=== PATIENT | female | born 1965 | race Caucasian/White ===

== ENCOUNTER → 2017-11-04 14:39 | Outpatient (CLI) | payer BC, SELFPAY ==
--- NOTE | 2017-11-04 | DI.US.S_ITS ---
PROCEDURE: US PELVIC COMPLETE INDICATIONS: UTERINE BLEEDING TECHNIQUE: Real-time scanning was performed of the pelvic organs, with image documentation. Additional endovaginal scanning was necessary due to incomplete visualization of the adnexal and endometrial structures by transabdominal scanning. COMPARISON: None. FINDINGS: Transabdominal scanning: Limited scanning through the kidneys shows no hydronephrosis. No pathologic free abdominal or pelvic fluid. Endovaginal scanning: Uterus: Uterus is normal in size at 5.5 x 2.4 0.0 cm. The endometrium measures 6.2 mm in combined thickness. Ovaries: Simple cyst involves the left ovary measuring roughly 25 x 21 x 27 mm the right ovary is not visualized. IMPRESSION: Simple cyst involving the left ovary measuring up to 2.7 cm. Dictated by: Cesar Alexis [facility] Interpreted: Madhavi Dhillon MD on 11/04/2017 at 15:32 Approved by: Madhavi Dhillon MD, PhD on 11/04/2017 at 15:35
== END ==
PROVIDERS: Family Provider Family Medicine; PCP Family Medicine; Visit Provider Nurse Practitioner Family
DX: N83.202 Unspecified ovarian cyst, left side (principal)
CPT/HCPCS: 76856

== ENCOUNTER → 2017-12-03 14:59 | Outpatient (CLI) | payer BC, SELFPAY ==
--- NOTE | 2017-12-03 | DI.MG.S_ITS ---
BILATERAL DIGITAL SCREENING MAMMOGRAM 3D/2D WITH CAD: 12/03/2017 CLINICAL: Routine screening. Comparison is made to exams dated: 10/05/2014 mammogram, 11/24/2006 mammogram, and 11/16/2006 mammogram - [facility]. The tissue of both breasts is heterogeneously dense. This may lower the sensitivity of mammography. Current study was also evaluated with a Computer Aided Detection (CAD) system. There is a mass in the right breast posterior depth lateral region seen on the craniocaudal view only. No other significant masses, calcifications, or other findings are seen in either breast. IMPRESSION: INCOMPLETE: NEEDS ADDITIONAL IMAGING EVALUATION The mass in the right breast is indeterminate. Additional views with possible ultrasound are recommended. This exam was interpreted at Station ID: [id number]. NOTE: For mammograms, a report in lay terms will be sent to the patient. Approximately 15% of breast malignancies will not be visualized mammographically. In the management of a palpable breast mass, a negative mammogram must not discourage biopsy of a clinically suspicious lesion. Electronically Signed By: Tanmay peck/shavon:12/03/2017 17:03:14 letter sent: Additional Imaging Needed ACR BI-RADS Category 0: Incomplete 3340F
== END ==
PROVIDERS: Family Provider Family Medicine; PCP Family Medicine; Visit Provider Nurse Practitioner Family
DX: Z12.31 Encounter for screening mammogram for malignant neoplasm of breast (principal); N63.10 Unspecified lump in the right breast, unspecified quadrant
CPT/HCPCS: 77063; 77067

== ENCOUNTER → 2017-12-23 12:33 | Outpatient (CLI) | payer BC, SELFPAY ==
--- NOTE | 2017-12-23 | DI.MG.S_ITS ---
UNILATERAL RIGHT DIGITAL DIAGNOSTIC MAMMOGRAM 3D/2D WITH ADDITIONAL VIEWS: 12/23/2017 CLINICAL: Additional evaluation requested from prior study. Comparison is made to exams dated: 12/03/2017 mammogram, 10/05/2014 mammogram, and 11/16/2006 mammogram - [facility]. The tissue of the right breast is heterogeneously dense. This may lower the sensitivity of mammography. There is a mass in the right breast posterior depth lateral region seen on the craniocaudal view only. This is seen in additional views. No other significant masses or calcifications are seen in the breast. IMPRESSION: INCOMPLETE: NEEDS ADDITIONAL IMAGING EVALUATION The mass in the right breast most likely is a lymph node and is indeterminate. An ultrasound is recommended. This exam was interpreted at Station ID: [id number]. NOTE: For mammograms, a report in lay terms will be sent to the patient. Approximately 15% of breast malignancies will not be visualized mammographically. In the management of a palpable breast mass, a negative mammogram must not discourage biopsy of a clinically suspicious lesion. Electronically Signed By: Olga darling/:12/23/2017 13:21:56 letter sent: Additional Imaging Needed ACR BI-RADS Category 0: Incomplete 3340F
--- NOTE | 2017-12-23 | DI.US.S_ITS ---
ULTRASOUND OF RIGHT BREAST: 12/23/2017 CLINICAL: Patient returns today to evaluate a density in the right breast. Comparison is made to exams dated: 12/23/2017 mammogram, 12/03/2017 mammogram, and 10/05/2014 mammogram - [facility]. Ultrasound of the right breast was performed on the area of interest. Dupree scale images of the real-time examination were reviewed. Theare 2 normal lymph nodes in the right breast at 11 o'clock posterior depth. This correlates with mammography findings. IMPRESSION: BENIGN There is no sonographic evidence of malignancy. The lymph nodes in the right breast are benign. A 1 year screening mammogram is recommended. This exam was interpreted at Station ID: [id number]. Electronically Signed By: Olga darling/:12/23/2017 14:57:42 letter sent: Normal Exam Ultrasound BI-RADS: 2 Benign
== END ==
PROVIDERS: Family Provider Family Medicine; PCP Family Medicine; Visit Provider Family Medicine
DX: R92.8 Other abnormal and inconclusive findings on diagnostic imaging of breast (principal)
CPT/HCPCS: 76642; 77065; G0279

== ENCOUNTER → 2019-01-26 15:26 | Outpatient (CLI) | payer BC, SELFPAY ==
--- NOTE | 2019-01-26 | DI.RAD.S_ITS ---
PROCEDURE: XR LUMBAR SPINE 2-3V INDICATIONS: LOWER BACK PAIN TECHNIQUE: 3 views of the lumbar spine were acquired. COMPARISON: [facility], [place], SPINE LUMB MIN 4VW, 12/02/2016, 8:26. FINDINGS: Bones: No fracture or focal osseous destruction. Multilevel degenerative endplate sclerosis and spurring. Diffuse facet arthropathy. Moderate narrowing of L5-S1, L4-L5 and L3-L4 disc spaces. Levocurvature is noted. Soft tissues: Overlying bowel gas pattern is normal. No suspicious soft tissue calcifications. IMPRESSION: Mid to lower lumbar spondylosis and diffuse facet arthropathy. Grossly, no interval change since 12/02/16. Levocurvature as before. Dictated by: Elvin Kearney M.D. on 01/26/2019 at 16:52 Approved by: Elvin Kearney M.D. on 01/26/2019 at 16:54
== END ==
PROVIDERS: Family Provider Family Medicine; PCP Family Medicine; Visit Provider Student in an Organized Health Care Education/Training Program
DX: M54.5 Low back pain (principal); M47.816 Spondylosis without myelopathy or radiculopathy, lumbar region
CPT/HCPCS: 72100

== ENCOUNTER 2019-02-02 11:01 | Emergency (ER) | payer BC, SELFPAY ==
[2019-02-02 11:11] VITALS: BP 180/95; PULSE 81; RESP 18; O2SAT 96
[2019-02-02 11:12] VITALS: BP 180/95; PULSE 81; RESP 18; TEMP 37.1; O2SAT 96; BMI 37.5
--- NOTE | 2019-02-02 11:28 | ED_ITS ---
HPI - Back Pain/Injury General Chief Complaint: Back Pain/Injury Stated Complaint: lower back pain Time Seen by Provider: 02/02/19 11:13 Source: patient Mode of arrival: Ambulatory Limitations: no limitations History of Present Illness HPI Narrative: 53-year-old female here for evaluation of left lower back pain radiating to her left hip. States the symptoms have been going on for the past 2 weeks. No specific trauma. Has been seen in the past for lower back pain. Has seen a information systems specialist. Has had 2 MRIs the last 1 being greater than 1 year ago. She has known degenerative disc disease. Has had a nerve ablation an spine steroid injections in the past. She has had reactions in the past to steroids to include psychoses. She currently has an MRI ordered from her primary doctor 1 week ago. She has not had this performed up to this time. No urinary symptoms. Has been taking ibuprofen an aspirin at home without any improvement. Related Data Home Medications Medication Instructions Recorded Confirmed albuterol sulfate [Proventil HFA] 1 puff INH PRN #8.5 gm 03/01/12 11/07/18 hydrochlorothiazide 12.5 mg PO DAILY #0 12/07/16 02/02/19 losartan 50 mg PO DAILY #0 01/21/17 02/02/19 bupropion HCl 300 mg PO DAILY 02/02/19 02/02/19 lisdexamfetamine [Vyvanse] 50 mg PO DAILY 02/02/19 02/02/19 vortioxetine [Trintellix] 10 mg PO DAILY 02/02/19 02/02/19 Previous Rx's Medication Instructions Recorded zolpidem 5 mg tablet 5 mg PO HSP PRN #30 tab 11/07/18 cyclobenzaprine 10 mg PO TID PRN #20 tab 02/02/19 hydrocodone-acetaminophen [Timber] 1 tab PO Q4-6H PRN #14 tab 02/02/19 Allergies Allergy/AdvReac Type Severity Reaction Status Date / Time No Known Drug Allergies Allergy Verified 02/02/19 11:12 Review of Systems Constitutional Constitutional: Denies headache(s) ENT Ears, Nose, Mouth, and Throat: Denies headache(s) Cardiovascular Cardiovascular: Denies chest pain and Denies dyspnea Respiratory Respiratory: Denies dyspnea Gastrointestinal Gastrointestinal: Denies abdominal pain, Denies nausea and Denies vomiting Genitourinary Genitourinary: Denies urinary frequency, Denies difficulty voiding, Denies dysuria, Denies flank pain, Denies urinary incontinence, Denies urinary hesi tancy and Denies urinary urgency Musculoskeletal Musculoskeletal: Reports back pain, Reports numbness and Reports tingling Integumentary/Breasts Skin/Breast: Denies lesions and Denies rash Neurologic Neurologic: Denies headache(s), Reports numbness and Reports tingling Hematologic/Lymphatic Hematologic/Lymphatic: Denies easy bleeding and Denies easy bruising [facility] Medical History (Updated 02/02/19 @ 12:35 by Darrell Mccarthy DO) Back pain (Acute) Major depressive disorder, recurrent episode with anxious distress (Inactive) PTSD (post-traumatic stress disorder) (Inactive) Social History Smoking Status: Never smoker Social History Smoking Status: Never smoker Exam Initial Vital Signs Initial Vital Signs: Vital Signs Pulse Rate 81 02/02/19 11:11 Respiratory Rate 18 02/02/19 11:11 Blood Pressure 180/95 H 02/02/19 11:11 Pulse Oximetry 96 02/02/19 11:11 HENMT Head: normal to inspection and normocephalic Resp Effort & Inspection: normal respiratory effort Cardio Rate: regular rate Back/Spine/Pelvis Thoracic/Lumbar Spine: paraspinal tenderness and lumbar spinal tenderness Skin Lesions: no lesions Rashes: no rashes Neuro General: alert, awake and oriented x3 Cognition: normal cognition Speech: speech normal Extrem General: normal to inspection, capillary refill normal and No edema Psych Appearance: grossly normal and well kempt Course Orders Ordered: Discontinued Medications Hydromorphone HCl (Dilaudid) 1 mg IM NOW ONE Stop: 02/02/19 11:30 Last Admin: 02/02/19 11:52 Dose: 1 mg Documented by: ARTURO Ketorolac Tromethamine (Toradol) 30 mg IM NOW ONE Stop: 02/02/19 11:30 Last Admin: 02/02/19 11:53 Dose: 30 mg Documented by: ARTURO Vital Signs Vital signs: Vital Signs - 8 hr 02/02/19 11:11 02/02/19 11:12 Temperature 98.7 F Pulse Rate 81 81 Respiratory Rate 18 18 Blood Pressure 180/95 H Blood Pressure [Right Arm] 180/95 H Pulse Oximetry 96 96 MDM - Back Pain/Injury MDM Narrative Medical decision making narrative: Symptoms for 2 weeks. Has no red flag symptoms concerning for cauda equina. No trauma. Doubt fracture. Doubt metastasis. Has been having symptoms for 2 weeks. She has had prednisone into psychosocial the past will avoid steroids. Will send home with symptom treatment. She has a referral for an MRI provided by her primary provider unfortunately we cannot get that today out of the emergency department. We discussed return precautions and follow-up instructions. Patient expressed understanding agreement plan. Discharge Plan Departure Patient Disposition: Home Clinical Impression: Acute back pain with sciatica Qualifiers: Laterality: left Qualified Code(s): M54.42 - Lumbago with sciatica, left side Instructions: Back Pain (Alternative Therapy), DI for Back Pain With Sciatica, Activity May Be Better then Rest for Low Back Pain Recovery Activity Restrictions/Additional Instructions: Recommend that you continue with the anti-inflammatories such as Naprosyn like we discussed. Be sure that you take this with food. You can also continue with Tylenol. Take the other medications as needed and as directed. Continue to work on obtaining an MRI that was ordered by her primary provider. Return to the emergency department for any worsening symptoms Prescriptions: New cyclobenzaprine 10 mg tablet 10 mg PO TID PRN (Reason: muscle spasm) Qty: 20 RF: 0 hydrocodone-acetaminophen [Timber] 5-325 mg tablet 1 tab PO Q4-6H PRN (Reason: pain) Qty: 14 RF: 0 No Action zolpidem 5 mg tablet 5 mg PO HSP PRN (Reason: insomnia) Qty: 30 RF: 2 albuterol sulfate [Proventil HFA] 90 MCG/PUFF HFA aerosol inhaler 1 puff INH PRN Qty: 8.5 RF: 0 hydrochlorothiazide 25 MG tablet 12.5 mg PO DAILY Qty: 0 RF: 0 losartan 100 MG tablet 50 mg PO DAILY Qty: 0 RF: 0 Vyvanse 50 mg capsule 50 mg PO DAILY RF: 0 Trintellix 10 mg tablet 10 mg PO DAILY RF: 0 bupropion HCl 300 mg tablet extended release 24 hr 300 mg PO DAILY RF: 0 Referrals: Hafsa Bejarano MD [Primary Care Provider] -
[2019-02-02] MEDS: HYDROMORPHONE 1 MG INJ IM (11:52)
[2019-02-02] MEDS: KETOROLAC 60 MG/2 ML VIAL 30 MG IM (11:53)
[2019-02-02 12:49] VITALS: BP 168/74; PULSE 78; RESP 16; O2SAT 100
== END 2019-02-02 12:50 | disposition home or self-care (01) ==
PROVIDERS: Emergency Provider Emergency Medicine; Family Provider Family Medicine; PCP Student in an Organized Health Care Education/Training Program
DX: M54.42 Lumbago with sciatica, left side (principal)
CPT/HCPCS: 96372; 99282; 99283; J1170; J1885

== ENCOUNTER 2019-03-06 10:07 | Emergency (ER) | payer BC, SELFPAY ==
[2019-03-06 10:18] VITALS: BP 170/113; PULSE 126; RESP 20; O2SAT 100; BMI 36.8
--- NOTE | 2019-03-06 10:43 | ED_ITS ---
HPI - Back Pain/Injury General Chief Complaint: Back Pain/Injury Stated Complaint: back pain Time Seen by Provider: 03/06/19 10:28 Source: patient Mode of arrival: Ambulatory Limitations: no limitations History of Present Illness HPI Narrative: 53-year-old female with known degenerative disc disease and herniated discs with left-sided sciatic pain. I have evaluated here in the emergency department in the past. She does have a primary doctor. Has pain medication prescribed by her primary doctor. Also has seen neuro surgery down in [place] who has recommended surgery however the patient is waiting for a [employer] ellation and also approval by her insurance company. She has not been on anti- inflammatories since then because the doctor states that if she can be off these and a spot opens up she could potentially get in sooner. She has been taking her pain medications along with Tylenol. Has also taken Flexeril without much improvement. No fevers. No trauma. Related Data Home Medications Medication Instructions Recorded Confirmed albuterol sulfate [Proventil HFA] 1 puff INH PRN #8.5 gm 03/01/12 03/06/19 hydrochlorothiazide 12.5 mg PO DAILY #0 12/07/16 03/06/19 losartan 50 mg PO BID #0 01/21/17 03/06/19 bupropion HCl 300 mg PO DAILY 02/02/19 03/06/19 vortioxetine [Trintellix] 10 mg PO DAILY 02/02/19 03/06/19 hydrocodone-acetaminophen [Felton] 1 - 2 tab PO Q4-6H PRN 03/06/19 03/06/19 Previous Rx's Medication Instructions Recorded zolpidem 5 mg tablet 5 mg PO HSP PRN #30 tab 11/07/18 cyclobenzaprine 10 mg PO TID PRN #20 tab 02/02/19 lisdexamfetamine 50 mg capsule 50 mg PO DAILY #30 cap 02/17/19 celecoxib [Celebrex] 100 mg PO BID #60 cap 03/06/19 dexamethasone [Decadron] 12 mg PO DAILY #3 tab 03/06/19 hydrocodone-acetaminophen [Vicodin 1 tab PO Q4-6H PRN #14 tab 03/06/19 HP] Allergies Allergy/AdvReac Type Severity Reaction Status Date / Time No Known Drug Allergies Allergy Verified 03/06/19 10:18 Review of Systems Constitutional Constitutional: Denies fever(s) Cardiovascular Cardiovascular: Denies chest pain and Denies dyspnea Respiratory Respiratory: Denies dyspnea Gastrointestinal Gastrointestinal: Denies abdominal pain, Denies nausea and Denies vomiting Genitourinary Genitourinary: Denies urinary frequency, Denies difficulty voiding and Denies dysuria Musculoskeletal Musculoskeletal: Reports back pain, Reports myalgias (Left leg pain) and Reports arthralgias (Left hip pain) Integumentary/Breasts Skin/Breast: Denies lesions and Denies rash Neurologic Neurologic: Denies abnormal speech and Denies confusion Psychiatric Psychiatric: Denies confusion Hematologic/Lymphatic Hematologic/Lymphatic: Denies easy bleeding and Denies easy bruising Patient History Medical History Back pain (Acute) Major depressive disorder, recurrent episode with anxious distress (Inactive) PTSD (post-traumatic stress disorder) (Inactive) Social History Smoking Status: Never smoker Exam Initial Vital Signs Initial Vital Signs: Vital Signs Pulse Rate 126 H 03/06/19 10:18 Respiratory Rate 20 03/06/19 10:18 Blood Pressure 170/113 H 03/06/19 10:18 Pulse Oximetry 100 03/06/19 10:18 Const General: cooperative and healthy appearing [facility] Head: normal to inspection and normocephalic Resp Effort & Inspection: normal respiratory effort Cardio Rate: tachycardic Pulses: radial pulses present Skin Lesions: no lesions Rashes: no rashes Neuro General: alert and awake Cognition: normal cognition Speech: speech normal Extrem General: normal to inspection and capillary refill normal Psych Appearance: grossly normal and well kempt Course Orders Ordered: ED Orders 03/06/19 10:30 Urine Culture Stat Urine Microscopic Stat Discontinued Medications Dexamethasone (Decadron) 12 mg PO NOW ONE Stop: 03/06/19 12:27 Hydromorphone HCl (Dilaudid) 2 mg IM NOW ONE Stop: 03/06/19 10:44 Last Admin: 03/06/19 11:02 Dose: 2 mg Documented by: STEFF Vital Signs Vital signs: Vital Signs - 8 hr 03/06/19 10:18 Pulse Rate 126 H Respiratory Rate 20 Blood Pressure 170/113 H Pulse Oximetry 100 MDM - Back Pain/Injury Medical Records Attestation: I reviewed the patient's medical records. Lab Data Attestation: I reviewed the patient's lab results. Labs: Lab Results 03/06/19 Range/Units 10:30 Urine RBC 0-1/hpf (0-5/HPF) Urine WBC 0-1/hpf (0-5/HPF) Ur Squamous Epith Cells 0-1 /hpf (0-5/HPF) Urine Bacteria Occasional (0-1) (None) Ur Culture Indicated? Specimen cultured Urine Dip Bedside Urine Glucose Negative Bedside Urine Bilirubin - Negative Bedside Urine Ketone - Negative Urine Specific Lenore 1.005 Bedside Urine Occult Blood - Negative Bedside Urine pH 7.0 Bedside Urine Protein - Negative Bedside Urine Urobilinogen - Negative Bedside Urine Nitrite - Negative Bedside Urine Leukocytes +/- 15 Esterase MDM Narrative Medical decision making narrative: Some improvement of symptoms after pain medication here in the ER. She has known degenerative disc disease with the known disc herniation seen on MRI. She is under the care of a spine neuro s urgeon. Had a long discussion with the patient regarding her symptoms. She has had an issue with prednisone in the past. She had a episode of psychosis with that. We discussed the potential benefit of steroids with her current symptoms. We also discussed the risks of these. After this discussion and decision was made to start on a dose of Decadron. She was given a dose here in the ER. Was sent with 1 further dose. She has pain medication at home however the 05/325 tablets are not helping. Will give a short prescription of the10/325. She knows that she needs to talk with her primary doctor about refills of these medications. I do have a low suspicion for drug-seeking behavior. Patient also has not been taking anti-inflammatories because she is trying to get in to a surgery soon as possible however surgery has not been improved yet by her insurance company and she has nothing scheduled. We did discuss that anti- inflammatories could potentially help her symptoms. I did inform her that this may cause her to not be able to have a surgery if a spot opens up however given her current situation she would like to start on some anti-inflammatories. She understands risks and benefits. is at bedside his discussions. She was given return precautions. She expressed understanding agreement plan. Discharge Plan Departure Patient Disposition: Home Clinical Impression: Chronic low back pain with sciatica Qualifiers: Back pain laterality: unspecified Sciatica laterality: sciatica laterality unspecified Qualified Code(s): M54.40 - Lumbago with sciatica, unspecified side Instructions: DI for Low Back Pain Activity Restrictions/Additional Instructions: Recommend that you keep all of your scheduled medical appointments. Return to the emergency department for any new or worsening symptoms. Contact your primary provider for follow-up. Prescriptions: New celecoxib [Celebrex] 100 mg capsule 100 mg PO BID Qty: 60 RF: 0 dexamethasone [Decadron] 4 mg tablet 12 mg PO DAILY Qty: 3 RF: 0 hydrocodone-acetaminophen [Vicodin HP] 10-300 mg tablet 1 tab PO Q4-6H PRN (Reason: pain) Qty: 14 RF: 0 No Action zolpidem 5 mg tablet 5 mg PO HSP PRN (Reason: insomnia) Qty: 30 RF: 2 albuterol sulfate [Proventil HFA] 90 MCG/PUFF HFA aerosol inhaler 1 puff INH PRN Qty: 8.5 RF: 0 hydrochlorothiazide 25 MG tablet 12.5 mg PO DAILY Qty: 0 RF: 0 losartan 100 MG tablet 50 mg PO BID Qty: 0 RF: 0 Vyvanse 50 mg capsule 50 mg PO DAILY Qty: 30 RF: 0 Trintellix 10 mg tablet 10 mg PO DAILY RF: 0 bupropion HCl 300 mg tablet extended release 24 hr 300 mg PO DAILY RF: 0 cyclobenzaprine 10 mg tablet 10 mg PO TID PRN (Reason: muscle spasm) Qty: 20 RF: 0 hydrocodone-acetaminophen [Felton] 5-325 mg tablet 1 - 2 tab PO Q4-6H PRN (Reason: pain) RF: 0 Referrals: Hafsa Bejarano MD [Primary Care Provider] -
[2019-03-06] MEDS: HYDROMORPHONE 1 MG INJ 2 MG IM (11:02)
[2019-03-06 11:32] LABS: Bacteria Urine Occasional (0-1); Culture Indicated Urine Specimen Cultured; RBC Urine 0-1/HPF (0-5/HPF); Squamous Epithelial Cell Urine 0-1 /HPF (0-5/HPF); WBC Urine 0-1/HPF (0-5/HPF)
[2019-03-06] MEDS: dexAMETHasone 4 MG TABLET 12 MG PO (12:55)
[2019-03-06 13:12] VITALS: BP 151/72; PULSE 81; RESP 18; O2SAT 99
== END 2019-03-06 13:26 | disposition home or self-care (01) ==
PROVIDERS: Emergency Provider Emergency Medicine; PCP Student in an Organized Health Care Education/Training Program
DX: M54.40 Lumbago with sciatica, unspecified side (principal); M79.605 Pain in left leg; M25.552 Pain in left hip
CPT/HCPCS: 81003; 81015; 87086; 96372; 99282; 99283; J1170

== ENCOUNTER → 2020-04-01 17:20 | Outpatient (CLI) | payer BC, SELFPAY ==
--- NOTE | 2020-04-01 17:22 | DI.MG.S_ITS ---
BILATERAL DIGITAL SCREENING MAMMOGRAM 3D/2D WITH CAD: 04/01/2020 CLINICAL: Routine screening. Comparison is made to exams dated: 12/23/2017 mammogram, 12/03/2017 mammogram, and 10/05/2014 mammogram - [facility]. There are scattered fibroglandular elements in both breasts. Current study was also evaluated with a Computer Aided Detection (CAD) system. No significant masses, calcifications, or other findings are seen in either breast. There has been no significant interval change. IMPRESSION: NEGATIVE There is no mammographic evidence of malignancy. A 1 year screening mammogram is recommended. This exam was interpreted at Station ID: [id number]. NOTE: For mammograms, a report in lay terms will be sent to the patient. Approximately 15% of breast malignancies will not be visualized mammographically. In the management of a palpable breast mass, a negative mammogram must not discourage biopsy of a clinically suspicious lesion. Electronically Signed By: Olga darling/shavon:04/09/2020 11:05:16 letter sent: Normal Exam ACR BI-RADS Category 1: Negative [id number]
== END ==
PROVIDERS: PCP Student in an Organized Health Care Education/Training Program; Referring Provider Student in an Organized Health Care Education/Training Program; Visit Provider Student in an Organized Health Care Education/Training Program
DX: Z12.31 Encounter for screening mammogram for malignant neoplasm of breast (principal)
CPT/HCPCS: 77063; 77067

== ENCOUNTER 2020-08-26 11:10 | Emergency (ER) | payer BC, SELFPAY ==
[2020-08-26] VITALS (7 sets, daily range): BP systolic 138–189; BP diastolic 65–90; PULSE 61–94; RESP 14; TEMP 36.3; O2SAT 95–100
--- NOTE | 2020-08-26 11:20 | ED.GENADULT ---
HPI - General Adult General Chief complaint: Abdominal Pain Stated complaint: pain in right side of back, nausea, gassiness Time Seen by Provider: 08/26/20 11:20 History of Present Illness HPI narrative: 55-year-old woman with a history of hypertension, anxiety who presents with 2 weeks of increasing malaise and right flank pain. It is described as a 3/10 at rest an 8/10 with palpation. She describes mild nausea but no vomiting or diarrhea. She has had a kidney stone on the left side and feels that this is different. She has no dysuria, vaginal discharge and no recent change sexual partners. She states that she routinely has 3-4 alcoholic drinks in the evening. She describes no specific fevers but has been somewhat ?headachy over the last few days. Related Data Home Medications Medication Instructions Recorded Confirmed albuterol sulfate [Proventil HFA] 1 puff INH PRN #8.5 gm 03/01/12 08/06/20 losartan 100 mg tablet 100 mg PO DAILY #0 tab 11/16/19 08/06/20 spironolactone 25 mg tablet 25 mg PO DAILY 08/06/20 08/06/20 Previous Rx's Medication Instructions Recorded bupropion HCl 300 mg 24 hr tablet, 300 mg PO DAILY #90 tab 05/21/20 extended release lisdexamfetamine 40 mg capsule 40 mg PO QAM #90 cap 06/12/20 vortioxetine 20 mg tablet 20 mg PO DAILY #90 tab 06/12/20 zolpidem 10 mg tablet 5 - 10 mg PO BEDTIME PRN #90 tab 06/12/20 Allergies Allergy/AdvReac Type Severity Reaction Status Date / Time No Known Drug Allergies Allergy Verified 08/26/20 11:29 Review of Systems Review of Systems Narrative: Remainder of complete review of systems is otherwise unremarkable except for that included in the HPI. Patient History Medical History Back pain Major depressive disorder, recurrent episode with anxious distress PTSD (post-traumatic stress disorder) Social History Smoking Status: Never smoker Smoking Status: Never smoker Exam Narrative Exam Narrative: General: Healthy appearing, in no acute distress. Able to give a complete and coherent history. Well-nourished well-developed HEENT: Moist mucous membranes, normal sclera with reactive pupils, Neck: No JVD, supple Respiratory: Lungs are clear to auscultation, no wheezing no rales no rhonchi. Full and symmetrical air movement Cardiac: Regular rate and rhythm no murmurs no bruits Abdomen: Soft, nontender, good bowel tones, mild right flank tenderness question whether this is really more musculoskeletal paraspinous tenderness. Skin: Warm and dry, no rashes Neurologic: Grossly neurologically intact with no obvious asymmetries or abnormalities Extremities: No trauma, well perfused Psych: Cooperative, appropriate insight and affect Initial Vital Signs Initial Vital Signs: Vital Signs Temperature 97.4 F L 08/26/20 11:10 Pulse Rate 94 H 08/26/20 11:10 Respiratory Rate 14 08/26/20 11:10 Blood Pressure 189/90 H 08/26/20 11:10 Pulse Oximetry 99 08/26/20 11:10 Course Orders Ordered: ED Orders 08/26/20 11:31 CT kidney ureter bladder (KUB) Stat 08/26/20 11:34 Complete Blood Count AUTO DIFF Stat Comprehensive Metabolic Panel Stat Lipase Stat Discontinued Medications Sodium Chloride (Normal Saline 0.9%) 1,000 mls @ 1,000 mls/hr IV BOLUS ONE Stop: 08/26/20 12:29 Last Infusion: 08/26/20 12:40 Dose: 0 mls/hr Documented by: Admin: 08/26/20 11:42 Dose: 1,000 mls/hr Documented by: TIFFANY Vital Signs Vital signs: Vital Signs - 8 hr 08/26/20 11:10 08/26/20 11:44 08/26/20 11:47 Temperature 97.4 F L Pulse Rate 94 H 79 75 Respiratory Rate 14 Blood Pressure 189/90 H 142/80 H Pulse Oximetry 99 95 98 08/26/20 12:00 08/26/20 12:30 08/26/20 13:00 Temperature Pulse Rate 67 78 61 Respiratory Rate Blood Pressure 158/68 H Pulse Oximetry 98 100 100 08/26/20 13:01 Temperature Pulse Rate 61 Respiratory Rate Blood Pressure 138/65 Pulse Oximetry 99 Medical Decision Making Medical Records Medical records reviewed: Yes I reviewed the patient's medical records. Lab Data Lab results reviewed: Yes I reviewed the patient's lab results. Result diagrams: 08/26/20 11:34 08/26/20 11:34 Labs: Lab Results 08/26/20 08/26/20 Range/Units 11:34 11:34 WBC 7.8 (4.5-11.0) X10^3/uL RBC 4.87 (4.0-5.2) X10^6/uL Hgb 15.1 (12.0-16.0) g/dL Hct 43.2 (36-46) % MCV 88.7 (80-100) fL MCH 31.0 (26-34) PG MCHC 35.0 (30-36) % RDW 13.2 (11.6-14.8) % Plt Count 259 (150-400) X10^3/uL Neut % (Auto) 67.6 (50-75) % Lymph % (Auto) 21.3 L (25-40) % Cameron % (Auto) 6.2 (3-14) % Eos % (Auto) 4.3 H (2-4) % Baso % (Auto) 0.6 (0-2) % Neut # (Auto) 5300 (1105-0569) /uL Lymph # (Auto) 1700 (7082-5649) /uL Cameron # (Auto) 500 (0-900) /uL Eos # (Auto) 300 (0-450) /uL Baso # (Auto) 0 (0-100) /uL Sodium 136 L (137-145) mmol/L Potassium 4.4 (3.4-5.1) mmol/L Chloride 105 (98-107) mmol/L Carbon Dioxide 24 (22-32) mmol/L BUN 11 (7-17) mg/dL Creatinine 0.72 (0.52-1.04) mg/dL Estimated GFR > 60.0 (>60) mL/min BUN/Creatinine Ratio 15.3 (6-22) Glucose 109 H (70-100) mg/dL Calcium 9.6 (8.4-10.2) mg/dL Total Bilirubin 0.5 (0.2-1.3) mg/dL AST 22 (14-36) IU/L ALT 21 (<35) IU/L Alkaline Phosphatase 69 (38-126) U/L Total Protein 7.5 (6.3-8.2) g/dL Albumin 4.4 (3.5-5.0) g/dL Globulin 3.1 (1.7-4.1) g/dL Albumin/Globulin Ratio 1.4 (1.0-2.8) Lipase 51 (23-300) U/L Urine Dip Bedside Urine Glucose Negative Bedside Urine Bilirubin - Negative Bedside Urine Ketone - Negative Urine Specific [place] 1.010 Bedside Urine Occult Blood - Negative Bedside Urine pH 6.5 Bedside Urine Protein - Negative Bedside Urine Urobilinogen - Negative Bedside Urine Nitrite - Negative Bedside Urine Leukocytes - Negative Esterase Point of care testing: Urine Dip Bedside Urine Glucose Negative Bedside Urine Bilirubin - Negative Bedside Urine Ketone - Negative Urine Specific [place] 1.010 Bedside Urine Occult Blood - Negative Bedside Urine pH 6.5 Bedside Urine Protein - Negative Bedside Urine Urobilinogen - Negative Bedside Urine Nitrite - Negative Bedside Urine Leukocytes - Negative Esterase Imaging Data CT scan - abdomen/pelvis: Radiologist's Impression: FINDINGS: Image quality: Excellent. Lung bases: Lung bases are clear. Heart size is normal. Urinary system: Both kidneys are normal in size. No kidney stones. No hydronephrosis or perinephric fat stranding. Both ureters appear non-dilated throughout their expected courses. Bladder wall thickness is normal; no calcified bladder stones. Other solid organs: Liver is normal in size. Gallbladder contains multiple gallstones. Pancreas is normal in contours. Spleen is normal in size. No adrenal nodules. Peritoneum and bowel: Unenhanced bowel loops demonstrate normal wall thickness and caliber. Scattered colonic diverticuli without evidence of diverticulitis. No free fluid or air. Appendix is normal. Nodes and vessels: No retroperitoneal or mesenteric adenopathy by size criteria. Aorta and inferior vena cava are normal in caliber. Abdominal wall: No ventral hernias. Pelvis: No free pelvic fluid. No inguinal hernias or adenopathy. 3.8 centimeter left adnexal cyst. Bones: No suspicious bony lesions. No vertebral body compression fractures. Spine degenerative disc disease and facet arthropathy. IMPRESSION: 1. No renal stone or hydronephrosis. 2. Cholelithiasis. 3. Colonic diverticulosis without evidence of diverticulitis. 4. No dilated loops of bowel. 5. No free fluid or free air. 6. 3.8 centimeter left adnexal cyst. Dictated by: Madhavi Dhillon MD, PhD on 08/26/2020 at 11:44 MDM Narrative Medical decision making narrative: 55-year-old woman with 2 weeks of general malaise and flank to upper back pain that in looking at the CT scan is likely related to gallstones. She does not have acute cholecystitis. Labs are reassuring we normal. No evidence of pyelonephritis, renal stone or other significant intra-abdominal abnormalities. Incidental 3.8 cm left adnexal cyst at the age of 55 should probably be followed up as an outpatient, will share this concern with the patient. Will ask her to schedule an outpatient follow-up with Dr. Vega. Went over concerns and risks and when she would need to return to the emergency department. She is safe for home discharge Discharge Plan Departure Patient Disposition: Home Clinical Impression: Cholelithiasis Qualifiers: Cholelithiasis location: gallbladder Cholecystitis presence: without cholecystitis Biliary obstruction: without biliary obstruction Qualified Code(s): K80.20 - Calculus of gallbladder without cholecystitis without obstruction Instructions: DI for Gallstones, DI for Cholecystitis Activity Restrictions/Additional Instructions: Thank you for coming in today Your workup did not show bladder infection, kidney infection or kidney stones. Your blood work was very reassuring and no signs of any infection. The CT scan also showed gallstones in her gallbladder. None of the Mar obstructing your gallbladder and your gallbladder does not appear to be sick at this time. I suspect that that is the source of your pain. Please schedule an outpatient appointment with our surgeons to discuss having your gallbladder electively taken out If you find that you are getting worse, have pain that can not be controlled or uncontrolled vomiting, please return to the emergency department Prescriptions: No Action vortioxetine 20 mg tablet 20 mg PO DAILY Qty: 90 RF: 0 zolpidem 10 mg tablet 5 - 10 mg PO BEDTIME PRN (Reason: sleep) Qty: 90 RF: 0 lisdexamfetamine 40 mg capsule 40 mg PO QAM Qty: 90 RF: 0 spironolactone 25 mg tablet 25 mg PO DAILY RF: 0 albuterol sulfate [Proventil HFA] 90 MCG/PUFF HFA aerosol inhaler 1 puff INH PRN Qty: 8.5 RF: 0 losartan 100 mg tablet 100 mg PO DAILY Qty: 0 RF: 0 bupropion HCl 300 mg tablet extended release 24 hr 300 mg PO DAILY Qty: 90 RF: 1 Referrals: Hafsa Bejarano MD [Primary Care Provider] - Kiko Vega MD [Physician] -
--- NOTE | 2020-08-26 11:31 | DI.CT.S_ITS ---
PROCEDURE: CT KIDNEY URETER BLADDER (KUB) INDICATIONS: Right flank pain TECHNIQUE: Noncontrast 5 mm thick sections acquired from the diaphragms to the symphysis. 5 mm thick coronal and sagittal reformats were then performed. For radiation dose reduction, the following was used: automated exposure control, adjustment of mA and/or kV according to patient size. COMPARISON: None. FINDINGS: Image quality: Excellent. Lung bases: Lung bases are clear. Heart size is normal. Urinary system: Both kidneys are normal in size. No kidney stones. No hydronephrosis or perinephric fat stranding. Both ureters appear non-dilated throughout their expected courses. Bladder wall thickness is normal; no calcified bladder stones. Other solid organs: Liver is normal in size. Gallbladder contains multiple gallstones. Pancreas is normal in contours. Spleen is normal in size. No adrenal nodules. Peritoneum and bowel: Unenhanced bowel loops demonstrate normal wall thickness and caliber. Scattered colonic diverticuli without evidence of diverticulitis. No free fluid or air. Appendix is normal. Nodes and vessels: No retroperitoneal or mesenteric adenopathy by size criteria. Aorta and inferior vena cava are normal in caliber. Abdominal wall: No ventral hernias. Pelvis: No free pelvic fluid. No inguinal hernias or adenopathy. 3.8 centimeter left adnexal cyst. Bones: No suspicious bony lesions. No vertebral body compression fractures. Spine degenerative disc disease and facet arthropathy. IMPRESSION: 1. No renal stone or hydronephrosis. 2. Cholelithiasis. 3. Colonic diverticulosis without evidence of diverticulitis. 4. No dilated loops of bowel. 5. No free fluid or free air. 6. 3.8 centimeter left adnexal cyst. Dictated by: Madhavi Dhillon MD, PhD on 08/26/2020 at 11:44 Approved by: Madhavi Dhillon MD, PhD on 08/26/2020 at 11:48
[2020-08-26 11:42] LABS: Add Manual Diff / Slide Review NO; Basophils Absolute Auto 0 /uL (0-100); Basophils Percent Auto 0.6 % (0-2); Eosinophils Absolute Auto 300 /uL (0-450); Eosinophils Percent Auto 4.3 % (2-4); Hematocrit 43.2 % (36-46); Hemoglobin 15.1 g/dL (12.0-16.0); Lymphocytes Absolute Auto 1700 /uL (1100-4500); Lymphocytes Percent Auto 21.3 % (25-40); Mean Corpuscular Volume 88.7 fL (80-100); Monocytes Absolute Auto 500 /uL (0-900); Monocytes Percent Auto 6.2 % (3-14); Neutrophils Absolute Auto 5300 /uL (1500-7000); Neutrophils Percent Auto 67.6 % (50-75); Platelet Count 259 X10^3/uL (150-400); Red Blood Cell Count 4.87 X10^6/uL (4.0-5.2); Red Cell Distribution Width 13.2 % (11.6-14.8); White Blood Cell Count 7.8 X10^3/uL (4.5-11.0)
[2020-08-26] MEDS: SODIUM CHLORIDE 0.9% 1,000 ML 1000 ML IV (11:42)
[2020-08-26 11:55] LABS: Alanine Aminotransferase 21 IU/L (<35); Albumin 4.4 g/dL (3.5-5.0); Albumin Globulin Ratio 1.4 (1.0-2.8); Alkaline Phosphatase 69 U/L (38-126); Aspartate Aminotransferase 22 IU/L (14-36); BUN Creatinine Ratio 15.3 (6-22); Bilirubin Total 0.5 mg/dL (0.2-1.3); Blood Urea Nitrogen 11 mg/dL (7-17); Calcium 9.6 mg/dL (8.4-10.2); Carbon Dioxide 24 mmol/L (22-32); Chloride 105 mmol/L (98-107); Estimated Glomerular Filt Rate > 60.0 mL/min (>60); Globulin 3.1 g/dL (1.7-4.1); Glucose 109 mg/dL (70-100); HEMOLYSIS < 15 (0-50); Lipase 51 U/L (23-300); Potassium 4.4 mmol/L (3.4-5.1); Sodium 136 mmol/L (137-145); Total Protein 7.5 g/dL (6.3-8.2)
== END 2020-08-26 13:34 | disposition home or self-care (01) ==
PROVIDERS: Emergency Provider Emergency Medicine; PCP Student in an Organized Health Care Education/Training Program
DX: K80.20 Calculus of gallbladder without cholecystitis without obstruction (principal)
CPT/HCPCS: 36415; 74176; 80053; 81003; 83690; 85025; 96360; 99284

== ENCOUNTER → 2021-06-11 15:21 | Outpatient (CLI) | payer BC, SELFPAY ==
[2021-06-11 16:05] LABS: COVID19 -Nasal RAPID Negative (Negative)
== END ==
PROVIDERS: PCP Student in an Organized Health Care Education/Training Program; Referring Provider Internal Medicine; Visit Provider Internal Medicine
DX: Z20.822 Contact with and (suspected) exposure to COVID-19 (principal)
CPT/HCPCS: 87635; C9803

== ENCOUNTER → 2021-06-12 14:39 | Outpatient (CLI) | payer BC, SELFPAY ==
--- NOTE | 2021-06-18 07:50 | PM.PFT.1 ---
Pulmonary Function Test Referral & Results Date Patient Seen: 06/12/21 Requesting provider: Angus Dowd Results: The spirometry demonstrates an FVC of 3.57 L which is 81% of predicted. The FEV1 was measured at 2.54 L which is 75% of predicted. The FEV1/FVC ratio was 71 which is 93% of predicted. No bronchodilator was administered No lung volumes were performed No diffusing capacity was performed Maximum voluntary ventilation was not performed Interpretation: This study, which is limited to forced spirometry only, demonstrates possibly mild obstructive lung disease based on minimal reduction FEV1 although FEV1/FVC ratio is preserved. The shape of the flow volume loop also suggest the presence of obstructive lung disease Clinical correlation suggested
== END ==
PROVIDERS: PCP Student in an Organized Health Care Education/Training Program; Referring Provider Student in an Organized Health Care Education/Training Program; Visit Provider Student in an Organized Health Care Education/Training Program
DX: J45.909 Unspecified asthma, uncomplicated (principal)
CPT/HCPCS: 94010

== ENCOUNTER → 2022-07-20 07:44 | Outpatient (CLI) | payer OTHER, SELFPAY ==
--- NOTE | 2022-07-20 07:44 | DI.MG.S_ITS ---
BILATERAL DIGITAL SCREENING MAMMOGRAM 3D/2D WITH CAD: 07/20/2022 CLINICAL: Routine screening. Comparison is made to exams dated: 04/01/2020 mammogram, 12/03/2017 mammogram, and 10/05/2014 mammogram - [facility]. Both breasts are heterogeneously dense, which may obscure small masses (category c / 51-75% glandular tissue). Current study was also evaluated with a Computer Aided Detection (CAD) system. No significant masses, calcifications, or other findings are seen in either breast. There has been no significant interval change. IMPRESSION: NEGATIVE There is no mammographic evidence of malignancy. A 1 year screening mammogram is recommended. Based on the Tyrer Cuzick model (a risk assessment model) the patient's lifetime risk is 12.5% and her 10 year risk is 4.4%. According to the ACR, ACS, and NCCN guidelines, an annual breast MRI exam along with mammogram is recommended if the patient's lifetime risk is 20% or greater. This exam was interpreted at Station ID: [id number]. NOTE: For mammograms, a report in lay terms will be sent to the patient. Approximately 15% of breast malignancies will not be visualized mammographically. In the management of a palpable breast mass, a negative mammogram must not discourage biopsy of a clinically suspicious lesion. Electronically Signed By: Timothy fernandes/shavon:07/20/2022 13:05:57 letter sent: Normal Exam ACR BI-RADS Category 1: Negative 3341F
== END ==
PROVIDERS: PCP Student in an Organized Health Care Education/Training Program; Referring Provider Student in an Organized Health Care Education/Training Program; Visit Provider Student in an Organized Health Care Education/Training Program
DX: Z12.31 Encounter for screening mammogram for malignant neoplasm of breast (principal)
CPT/HCPCS: 77063; 77067

== ENCOUNTER → 2022-09-26 10:24 | Outpatient (CLI) | payer OTHER, SELFPAY | PROVIDERS: PCP Student in an Organized Health Care Education/Training Program; Visit Provider Nurse Practitioner Family | DX: N39.0 Urinary tract infection, site not specified (principal) | CPT/HCPCS: 87086 ==

== ENCOUNTER → 2022-11-26 10:45 | Outpatient (CLI) | payer OTHER, SELFPAY ==
[2022-11-26 13:18] LABS: Add Manual Diff / Slide Review NO; Basophils Absolute Auto 0 /uL (0-100); Basophils Percent Auto 0.6 % (0-2); Eosinophils Absolute Auto 300 /uL (0-450); Eosinophils Percent Auto 5.7 % (2-4); Hemoglobin 14.8 g/dL (12.0-16.0); Lymphocytes Absolute Auto 1900 /uL (1100-4500); Lymphocytes Percent Auto 33.1 % (25-40); Mean Corpuscular HGB Conc 35.3 % (30-36); Mean Corpuscular Hemoglobin 30.8 PG (26-34); Mean Corpuscular Volume 87.4 fL (80-100); Monocytes Absolute Auto 400 /uL (0-900); Monocytes Percent Auto 7.3 % (3-14); Neutrophils Absolute Auto 3100 /uL (1500-7000); Neutrophils Percent Auto 53.3 % (50-75); Platelet Count 235 X10^3/uL (150-400); Red Blood Cell Count 4.81 X10^6/uL (4.0-5.2); Red Cell Distribution Width 13.1 % (11.6-14.8); White Blood Cell Count 5.7 X10^3/uL (4.5-11.0)
[2022-11-26 13:51] LABS: Alanine Aminotransferase 27 IU/L (<35); Albumin Globulin Ratio 1.3 (1.0-2.8); Alkaline Phosphatase 66 U/L (38-126); Aspartate Aminotransferase 23 IU/L (14-36); BUN Creatinine Ratio 17.6 (6-22); Bilirubin Total 0.5 mg/dL (0.2-1.3); Blood Urea Nitrogen 12 mg/dL (7-17); Carbon Dioxide 28 mmol/L (22-32); Chloride 102 mmol/L (98-107); Estimated Glomerular Filt Rate > 60 mL/min (>60); Glucose 113 mg/dL (70-100); HEMOLYSIS < 15 (0-50); Potassium 4.6 mmol/L (3.4-5.1); Sodium 136 mmol/L (137-145)
[2022-11-26 13:55] LABS: Free T4, Direct Thyroxine 0.84 ng/dL (0.78-2.19)
[2022-11-26 14:09] LABS: Thyroid Stimulating Hormone 1.68 uIU/mL (0.47-4.68)
== END ==
PROVIDERS: Referring Provider Psychiatry & Neurology Psychiatry; Visit Provider Psychiatry & Neurology Psychiatry
DX: F33.41 Major depressive disorder, recurrent, in partial remission (principal); F41.1 Generalized anxiety disorder; F41.8 Other specified anxiety disorders; G47.00 Insomnia, unspecified; F90.2 Attention-deficit hyperactivity disorder, combined type
CPT/HCPCS: 36415; 80053; 84439; 84443; 85025; 99214

== ENCOUNTER 2022-12-15 12:27 | Day surgery (SDC) | payer OTHER, SELFPAY ==
--- NOTE | 2022-12-15 | PATH_ITS ---
[facility] Accession Number: [id number] No. of containers..01 Tissue . 01 Material submitted: . colon - TRANSVERSE POLYP . 01 Diagnosis: Transverse Colon, Polyp: Tubular adenoma. JN 12/25/2022 1320 Local . 01 Electronically signed: . Olya Morgan MD, Pathologist NPI- [id number] . 01 Gross description: . TRANSVERSE POLYP: Received in formalin is 1 fragment(s) of richter, soft tissue measuring 0.3 x 0.2 x 0.1 cm submitted entirely in 1 cassette(s) /AAY 12/17/2022 1246 Local . 01 Pathologist provided ICD-10: D12.3 . 01 CPT . 655840 Specimen Comment: A courtesy copy of this report has been sent to [phone] Performed at: 01 [facility] [address] [place] [address], [place], [place] [id number] MD Edwar Guajardo MD Phone: [phone]
[2022-12-15 12:57] VITALS: BP 151/96; PULSE 84; RESP 17; TEMP 36.4; O2SAT 100; BMI 36.0
[2022-12-15] MEDS: LACTATED RINGERS 1,000 ML 200 ML IV (13:13)
--- NOTE | 2022-12-15 13:48 | P.HP_ITS ---
History of Present Illness History of Present Illness Date Patient Seen: 12/15/22 Time Patient Seen: 13:48 Chief complaint: SDC Narrative: The patient presents for colorectal screening. They have never had any previous examination for such. No personal or family history of colon cancer. On further history denies any recent gastrointestinal symptoms. No nausea, vomiting, abdominal pain, loss of appetite, unexplained weight loss, change in bowel habits, or blood per rectum. [facility] Medical History Allergies (~1965) Back pain Binge eating disorder Chicken pox (~1969) Eczema Hypertension Major depressive disorder, recurrent episode with anxious distress PTSD (post-traumatic stress disorder) Scoliosis (~1979) Sleep apnea Surgical History Anesthesia History of back surgery (~03/2019) History of shoulder surgery (~09/2019) Family History Father History of heart disease Hypertension Mother Atrial fibrillation Brother Hypertension Social History household members: spouse Smoking Status: Never smoker alcohol intake: current Meds Home Medications and Allergies Home Medications Medication Instructions Recorded Confirmed Type albuterol sulfate 90 mcg/actuation 1 puff INH PRN shortness of breath 03/01/12 12/15/22 History aerosol inhaler (Proventil HFA) ##8.5 budesonide 90 mcg/actuation breath 1 inh inhalation 09/24/21 06/03/22 History activated powder inhaler (Pulmicort Flexhaler) zolpidem 5 mg tablet 5 mg PO BEDTIME PRN sleep #30 tabs 09/01/22 12/15/22 Rx venlafaxine 75 mg tablet,extended 150 mg PO DAILY #30 tabs 11/05/22 12/15/22 Rx release 24 hr Allergies Allergy/AdvReac Type Severity Reaction Status Date / Time No Known Drug Allergies Allergy Verified 12/15/22 12:53 Exam Vital Signs (past 8 hours): - 12/15/22 12:57 Temperature 97.5 F L Pulse Rate 84 Respiratory Rate 17 Blood Pressure 151/96 H Pulse Oximetry 100 Oxygen Delivery Method Room Air Oxygen Delivery Method Room Air Narrative Exam Narrative: General adult woman alert oriented no acute distress Chest nonlabored respiration Abdomen soft nontender nondistended Assessment & Plan Assessment & Plan narrative: The patient requires colorectal screening and colonoscopy is recommended. Technical details were discussed. Risks, benefits, alternatives explained. Risks including but not limited to myocardial infarction, aspiration, bleeding, pain, missed lesion, incomplete examination, need for further radiographic studies, colonic perforation, and need for major abdominal surgery were discussed. All questions were answered to their satisfaction, and they are in agreement with this plan.
--- NOTE | 2022-12-15 14:17 | PM.OP.COLON ---
Operative Date/Time/Diagnoses Date of procedure: 12/15/22 Time of procedure: 14:18 Pre-op diagnosis: Colorectal screening Post-op diagnosis: other (Colonic polyp x1) Procedure & Clinicians Study performed: Colonoscopy and polypectomy Same procedure as scheduled: Yes Indications: Colorectal screening Surgeon: Kiko Vega Procedure Notes Procedure in detail: The history and physical was performed/updated and the patient is ASA class is 2. The procedure was discussed in detail with the patient. Potential risks complications including infection, bleeding, missed diagnosis, perforation, need for surgery, and were explained. Their questions were answered and informed consent was obtained. Patient was brought to the procedure room and placed standard monitoring equipment. The patient's vital signs were monitored continuously throughout the entire procedure. Prior to starting time-out was performed. The patient was placed in the left lateral recumbent position. Procedural sedation was administered by anesthesia. Examination began with a thorough inspection of the perianal area there was no evidence of fissures, fistulae, external hemorrhoids or cutaneous malignancy. The colonoscopy scope was then placed into the anal canal and was advanced to the cecum, which was identified by the ileocecal valve, the appendiceal orifice and the confluence of the taenia. The scope was then slowly withdrawn examining colon thoroughly in all directions, irrigating it of any residual stool. Transverse colon-3 mm polyp removed with biopsy forceps The patient tolerated the procedure well. They will be discharged once criteria are met. The prep was of good/excellent quality. The withdrawl time was 7 minutes. Specimen(s): other (Transverse colon polyp) Impression: Colonic polyp x1 Post-procedure Plan for aftercare: Follow-up is dependent on pathology findings. Likely 5 years. Disposition: same day surgery
[2022-12-15 14:19] VITALS: BP 138/84; PULSE 95; RESP 18; TEMP 36.2; O2SAT 100
[2022-12-15 14:23] VITALS: BP 148/83; PULSE 77; RESP 13; TEMP 36.2; O2SAT 100
[2022-12-15 14:28] VITALS: BP 133/84; PULSE 74; RESP 14; O2SAT 100
[2022-12-15 14:34] VITALS: BP 132/77; PULSE 74; RESP 16; TEMP 36.2; O2SAT 100
== END 2022-12-15 14:51 | disposition home or self-care (01) ==
PROVIDERS: Referring Provider Surgery; Visit Provider Surgery
PROC: 0DJD8ZZ Inspection of Lower Intestinal Tract, Via Natural or Artificial Opening Endoscopic (ICD-10-PCS; CPT 45378; principal; 2022-12-15 13:30)
DX: Z12.11 Encounter for screening for malignant neoplasm of colon (principal); D12.3 Benign neoplasm of transverse colon
CPT/HCPCS: 45380; J2704; J3010

== ENCOUNTER → 2023-04-04 14:25 | Outpatient (CLI) | payer OTHER, SELFPAY | PROVIDERS: PCP Student in an Organized Health Care Education/Training Program; Visit Provider Physician Assistant | DX: J02.9 Acute pharyngitis, unspecified (principal) | CPT/HCPCS: 87070 ==

== ENCOUNTER → 2023-08-09 08:23 | Outpatient (CLI) | payer OTHER, SELFPAY ==
[2023-08-09 08:42] LABS: Add Manual Diff / Slide Review NO; Basophils Absolute Auto 100 /uL (0-100); Basophils Percent Auto 1.5 % (0-2); Eosinophils Absolute Auto 500 /uL (0-450); Eosinophils Percent Auto 6.2 % (2-4); Hematocrit 40.7 % (36-46); Lymphocytes Absolute Auto 2800 /uL (1100-4500); Lymphocytes Percent Auto 35.7 % (25-40); Mean Corpuscular HGB Conc 34.5 % (30-36); Mean Corpuscular Hemoglobin 30.5 PG (26-34); Mean Corpuscular Volume 88.4 fL (80-100); Monocytes Absolute Auto 600 /uL (0-900); Monocytes Percent Auto 7.9 % (3-14); Neutrophils Absolute Auto 3800 /uL (1500-7000); Neutrophils Percent Auto 48.7 % (50-75); Platelet Count 261 X10^3/uL (150-400); Red Cell Distribution Width 13.6 % (11.6-14.8); White Blood Cell Count 7.7 X10^3/uL (4.5-11.0)
[2023-08-09 08:52] LABS: Hemoglobin A1C% w Est Avg Glu 5.7 % (4.0-6.0)
[2023-08-09 09:01] LABS: Alanine Aminotransferase 38 IU/L (<35); Albumin 3.9 g/dL (3.5-5.0); Albumin Globulin Ratio 1.3 (1.0-2.8); Alkaline Phosphatase 68 U/L (38-126); Aspartate Aminotransferase 28 IU/L (14-36); BUN Creatinine Ratio 16.7 (6-22); Bilirubin Total 0.6 mg/dL (0.2-1.3); Blood Urea Nitrogen 12 mg/dL (7-17); Calcium 9.3 mg/dL (8.4-10.2); Carbon Dioxide 31 mmol/L (22-32); Chloride 106 mmol/L (98-107); Cholesterol 190 mg/dL (140-199); Estimated Glomerular Filt Rate > 60 mL/min (>60); Glucose 117 mg/dL (70-100); HDL Cholesterol 56 mg/dL (40-60); HEMOLYSIS < 15 (0-50); LDL Cholesterol Calculated 105 mg/dL (<100); Potassium 4.6 mmol/L (3.4-5.1); Sodium 140 mmol/L (137-145); Total Protein 6.9 g/dL (6.3-8.2); Triglycerides 143 mg/dL (35-150)
[2023-08-09 09:30] LABS: TSH w/ Reflex to FT4 1.74 uIU/mL (0.47-4.68)
== END ==
PROVIDERS: PCP Family Medicine; Referring Provider Family Medicine; Visit Provider Family Medicine
DX: Z00.00 Encounter for general adult medical examination without abnormal findings (principal); F41.1 Generalized anxiety disorder; I10 Essential (primary) hypertension; R73.03 Prediabetes
CPT/HCPCS: 36415; 80053; 80061; 83036; 84443; 85025

== ENCOUNTER → 2024-01-12 09:58 | Outpatient (CLI) | payer OTHER, SELFPAY ==
--- NOTE | 2024-01-12 09:58 | DI.MG.S_ITS ---
BILATERAL DIGITAL SCREENING MAMMOGRAM 3D/2D WITH CAD: 01/12/2024 CLINICAL: Routine screening. Comparison is made to exams dated: 07/20/2022 mammogram, 04/01/2020 mammogram, and 12/03/2017 mammogram - [facility]. There are scattered areas of fibroglandular density in both breasts (category b / 25%-50% glandular tissue). Current study was also evaluated with a Computer Aided Detection (CAD) system. No significant masses, calcifications, or other findings are seen in either breast. There has been no significant interval change. IMPRESSION: NEGATIVE There is no mammographic evidence of malignancy. A 1 year screening mammogram is recommended. Based on the Tyrer Cuzick model (a risk assessment model) the patient's lifetime risk is 8.3% and her 10 year risk is 3.0%. According to the ACR, ACS, and NCCN guidelines, an annual breast MRI exam along with mammogram is recommended if the patient's lifetime risk is 20% or greater. This exam was interpreted at Station ID: [id number]. NOTE: For mammograms, a report in lay terms will be sent to the patient. Approximately 15% of breast malignancies will not be visualized mammographically. In the management of a palpable breast mass, a negative mammogram must not discourage biopsy of a clinically suspicious lesion. Electronically Signed By: Fabi Kenney M.D., Ph.D. zay/shavon:01/14/2024 00:37:29 letter sent: Normal Exam ACR BI-RADS Category 1: Negative 3341F
== END ==
PROVIDERS: PCP Family Medicine; Referring Provider Family Medicine; Visit Provider Family Medicine
DX: Z12.31 Encounter for screening mammogram for malignant neoplasm of breast (principal); R92.323 Mammographic fibroglandular density, bilateral breasts
CPT/HCPCS: 77063; 77067

== ENCOUNTER → 2024-03-10 10:32 | Outpatient (CLI) | payer OTHER, SELFPAY ==
[2024-03-10 12:02] LABS: Alanine Aminotransferase 30 IU/L (<35); Albumin 4.3 g/dL (3.5-5.0); Albumin Globulin Ratio 1.3 (1.0-2.8); Alkaline Phosphatase 82 U/L (38-126); Aspartate Aminotransferase 27 IU/L (14-36); Bilirubin Total 0.7 mg/dL (0.2-1.3); Bilirubin Unconjugated 0.3 mg/dL (0.0-1.1); Globulin 3.2 g/dL (1.7-4.1); Glucose 147 mg/dL (70-100); HEMOLYSIS 22 (0-50); Total Protein 7.5 g/dL (6.3-8.2)
[2024-03-10 12:21] LABS: Free T3, Triiodothyronine Free 3.98 pg/mL (2.77-5.27); Free T4, Direct Thyroxine 0.96 ng/dL (0.78-2.19)
[2024-03-10 12:31] LABS: Thyroid Stimulating Hormone 1.32 uIU/mL (0.47-4.68)
[2024-03-11 07:36] LABS: Thyroid Peroxidase Antibodies 19 IU/mL (0-34)
== END ==
PROVIDERS: PCP Family Medicine; Referring Provider Naturopath; Visit Provider Naturopath
DX: R73.03 Prediabetes (principal); R74.8 Abnormal levels of other serum enzymes; R53.83 Other fatigue
CPT/HCPCS: 36415; 80076; 82947; 84439; 84443; 84481; 86376

== ENCOUNTER → 2024-03-14 10:04 | Outpatient (CLI) | payer OTHER, SELFPAY ==
[2024-03-14 11:48] LABS: Hemoglobin A1C% w Est Avg Glu 6.3 % (4.0-6.0)
== END ==
PROVIDERS: PCP Family Medicine; Referring Provider Naturopath; Visit Provider Naturopath
DX: R73.03 Prediabetes (principal); R74.8 Abnormal levels of other serum enzymes; R53.83 Other fatigue
CPT/HCPCS: 36415; 83036

== ENCOUNTER → 2024-06-01 10:54 | Outpatient (CLI) | payer BC, SELFPAY ==
--- NOTE | 2024-06-22 08:18 | DIAB.MNT ---
Initial Diabetes Medical Nutrition Therapy Assessment Name: Marquita Parada Date: 06/01/24 Time: 1105-12 Dx: Type II Diabetes Provider: Courtney Siddiqi Learning Style: Ann Marie Juárez presents for initial DM visit. New dx T2DM and endorses FH of Dm with father. Reports she feels her eating it off and endorses sugar cravings frequently. Loves veggies and trying to eat less bread. Wants to know more about nutrition, BG goals and potential GLP1 meds. Reports difficulty with access of a depression/anxiety med. Endorses feeling overwhelmed and fatigued lately. Eats 3x per day +/- snack Binge eating disorder in EMR, however she denies h/o this. Diet Recall: 830a: coffee with eggs and veggies 1130a-12p: sandwich with turkey and cheese OR eating out 430p: banana OR almonds OR yogurt sn: candy if around water coffee Beer Hard time stopping sweets, ie cookies, candy, ice cream per report. Anthropometrics: Ht: 67 Wt: 242# 09/2023 Physical Activity: Walking, swimming, gardening Self-Monitoring Blood Glucose: Wore a CGM, however was pulled off and bothered skin. Reports FBG of 117-130mg/dl. CGM is FSL14 with missing data due to not enough swipes. TIR: 4% high 96% in range avg 131mg/dl Diabetes Medications: 500mg Metformin Pertinent Labs: HgA1c: 5.7% 08/2023 6.3% 03/2024 Past Medical History: (Last Updated 09/14/23 @ 16:14 by Amari Johnson DO) Allergies (~1965) Asthma Back pain Binge eating disorder Chicken pox (~1969) Eczema Hypertension Major depressive disorder, recurrent episode with anxious distress Pre-diabetes PTSD (post-traumatic stress disorder) Scoliosis (~1979) Sleep apnea Nutrition Rx: Carbohydrates: Meal:45g Snack:15-30g Nutrition Diagnosis: - Nutrition and food related knowledge deficit r/t newly dx T2DM aeb referral and reported BG results of FG >126mg/dl. Intervention: This participant was very receptive. Provided appropriate educational handouts. Discussed the following topics: Completed intake assessment. Discussed barriers to care. Pathophysiology of T2DM HgA1c, its correlation to blood glucose numbers, and rationale for goal Importance of self-monitoring, how often, and when to check. Goals for BG. Suggested checking at different times to evaluate meals Plate Method, impact of macronutrients on blood sugar, meal timing, carbohydrate counting, pairing macronutrients and spreading out carbohydrates for better blood glucose management Recommended servings for carbohydrates at meals and snacks Med management; action and SE, GLP1 indications Brainstormed appropriate meal plan based on food preferences Role of physical activity and following provider guidelines for safety Created SMART goals for patient self-care and success. Goals: Message Dr. Hatfield about med access and potential alternatives Check with [facility] about med coverage/availability Swipe CGM 3x per day Eat q 3-4 hours Follow-up: [facility] follow-up in 3-4 weeks Stormy Ledezma RDN, NIKKY Certified Diabetes Care and Ornithology Teacher P: [phone] Thank you for this referral
== END ==
PROVIDERS: PCP Family Medicine; Referring Provider Family Medicine
DX: E11.9 Type 2 diabetes mellitus without complications (principal); Z71.3 Dietary counseling and surveillance; Z83.3 Family history of diabetes mellitus; F32.A Depression, unspecified; F41.9 Anxiety disorder, unspecified; Z79.84 Long term (current) use of oral hypoglycemic drugs
CPT/HCPCS: 97802

== ENCOUNTER 2024-06-29 17:12 | Emergency (ER) | payer BC, SELFPAY ==
[2024-06-29] VITALS (10 sets, daily range): BP systolic 128–157; BP diastolic 67–85; PULSE 71–88; RESP 18–20; TEMP 36.9; O2SAT 96–99; BMI 37.5
[2024-06-29 17:49] LABS: Add Manual Diff / Slide Review NO; Basophils Absolute Auto 100 /uL (0-100); Basophils Percent Auto 0.9 % (0-2); Eosinophils Absolute Auto 300 /uL (0-450); Eosinophils Percent Auto 3.7 % (2-4); Hematocrit 41.6 % (36-46); Hemoglobin 14.6 g/dL (12.0-16.0); Lymphocytes Absolute Auto 2200 /uL (1100-4500); Lymphocytes Percent Auto 27.6 % (25-40); Mean Corpuscular HGB Conc 35.1 % (30-36); Mean Corpuscular Hemoglobin 30.6 PG (26-34); Mean Corpuscular Volume 87.3 fL (80-100); Monocytes Absolute Auto 600 /uL (0-900); Monocytes Percent Auto 7.6 % (3-14); Neutrophils Absolute Auto 4800 /uL (1500-7000); Neutrophils Percent Auto 60.2 % (50-75); Platelet Count 312 X10^3/uL (150-400); Red Blood Cell Count 4.76 X10^6/uL (4.0-5.2); Red Cell Distribution Width 13.1 % (11.6-14.8)
[2024-06-29 17:56] LABS: Alanine Aminotransferase 49 IU/L (<35); Albumin 4.6 g/dL (3.5-5.0); Albumin Globulin Ratio 1.3 (1.0-2.8); Alkaline Phosphatase 68 U/L (38-126); Aspartate Aminotransferase 30 IU/L (14-36); BUN Creatinine Ratio 15.6 (6-22); Bilirubin Total 0.6 mg/dL (0.2-1.3); Blood Urea Nitrogen 12 mg/dL (7-17); Calcium 9.6 mg/dL (8.4-10.2); Carbon Dioxide 28 mmol/L (22-32); Chloride 101 mmol/L (98-107); Estimated Glomerular Filt Rate > 60 mL/min (>60); Globulin 3.6 g/dL (1.7-4.1); Glucose 105 mg/dL (70-100); HEMOLYSIS < 15 (0-50); Lipase 59 U/L (23-300); Potassium 3.6 mmol/L (3.4-5.1); Sodium 138 mmol/L (137-145); Total Protein 8.2 g/dL (6.3-8.2)
[2024-06-29 20:23] LABS: Bacteria Urine Occasional (0-1); Culture Indicated Urine Cult Not Indicated; RBC Urine 1-5/HPF (0-5/HPF); Squamous Epithelial Cell Urine 0-1 /HPF (0-5/HPF); Urine Volume 10mL (spun); WBC Urine 1-5/HPF (0-5/HPF)
--- NOTE | 2024-06-29 20:34 | DI.CT.S_ITS ---
PROCEDURE: CT KIDNEY URETER BLADDER (KUB) INDICATIONS: intermittent lower abdominal pain with blood in the urine TECHNIQUE: Axial sections were acquired from the lung bases to the pubic symphysis. Coronal and sagittal reformats were performed. For radiation dose reduction, the following was used: automated exposure control, adjustment of mA and/or kV according to patient size. COMPARISON: [facility], CT, CT KIDNEY URETER BLADDER (KUB), 08/26/2020, 11:34. FINDINGS: Image quality: Diagnostic. Peritoneum: No pneumoperitoneum or ascites. Bones: No acute osseous abnormality. Lower Chest: No acute abnormality. Liver: Normal in size and contour. Diffuse hypoattenuation. Gallbladder: Cholelithiasis versus cholestasis (2/57). Biliary tree: No intrahepatic or extrahepatic biliary ductal dilatation. Pancreas: Within normal limits. Spleen: Normal in size and contour. Kidneys: No hydronephrosis or obstructive urolithiasis. Adrenals: No adrenal nodularity. Bladder: Normal in size and wall thickness. : Anteverted uterus. Left adnexal 5.4 cm hypodense lesion (2/127). Stomach: Normal in size and contour. Bowel: Mild mural thickening of the proximal sigmoid colon in a background of colonic diverticulosis and mild fat stranding along the anti mesenteric border (2/113; 5/55). Otherwise, no bowel obstruction. Appendix within normal limits (2/104. Lymph Nodes: No retroperitoneal, mesenteric, or inguinal lymphadenopathy. Vascular: No abdominal aortic aneurysm. Soft Tissues: No acute abnormality. IMPRESSION: 1. Acute, uncomplicated sigmoid diverticulitis. 2. Cholelithiasis versus cholestasis. 3. Hepatic steatosis. 4. Left adnexal 5.4 cm hypodense lesion. The pelvic ultrasound from 11/04/2017 identified this finding as a simple cyst. Dictated by: Ortega Schmitt M.D. on 06/29/2024 at 21:48 Approved by: Ortega Schmitt M.D. on 06/29/2024 at 21:53
--- NOTE | 2024-06-29 21:08 | ED_ITS ---
HPI - Abdominal Pain General Chief Complaint: Abdominal Pain Stated Complaint: stabbing px LowerLeft ABD Time Seen by Provider: 06/29/24 20:58 Source: patient Mode of arrival: Ambulatory History of Present Illness HPI narrative: 59-year-old female reports history of left-sided ovarian cyst in the past, left kidney stone suspected in the past but not confirmed with passage of any physical stone or seen on CT scan, now with left-sided nontraumatic left flank pain since last night, seemed to get better, then intense again and rotating to the left anterior upper quadrant today. No nausea, no vomiting. Last bowel movement unremarkable earlier today, no black or red stools. No injury, trauma, new activities. No fevers or chills cough, denies shortness of breath. No frequency or urgency or painful urination. No fevers or chills. No generalized weakness. No focal weakness. Related Data Home Medications Medication Instructions Recorded Confirmed estradiol 0.0375 mg/24 hr 1 patch transdermal 2XW 03/30/24 03/30/24 semiweekly transdermal patch metformin 500 mg tablet 500 mg PO DAILY 03/30/24 03/30/24 progesterone micronized 100 mg 100 mg PO QAM 03/30/24 03/30/24 capsule budesonide 90 mcg/actuation breath inhalation Asthma 05/18/24 05/18/24 activated powder inhaler (Pulmicort Flexhaler) estradiol 2 mg (7.5 mcg/24 hour) vaginal Dry, painful intercourse 05/18/24 05/18/24 vaginal ring (Estring) flash glucose sensor (FreeStyle #1 ea 05/18/24 05/18/24 Srikanth 2 Sensor kit) Previous Rx's Medication Instructions Recorded albuterol sulfate 90 mcg/actuation 1 puff inhalation PRN shortness of 11/08/23 aerosol inhaler (Proventil HFA) breath ##8.5 losartan 50 mg-hydrochlorothiazide 1 tab PO DAILY #90 tabs 11/29/23 12.5 mg tablet bupropion HCl 150 mg 24 hr tablet, 300 mg (2 x 150 mg) PO QAM #90 tabs 06/22/24 extended release fluvoxamine 100 mg tablet 100 mg PO DAILY #90 tabs 06/22/24 lisdexamfetamine 60 mg capsule 60 mg PO DAILY #30 caps 06/22/24 zolpidem 5 mg tablet 5 mg PO BEDTIME #30 tabs 06/22/24 amoxicillin 875 mg-potassium 1 tab PO BID #20 tabs 06/29/24 clavulanate 125 mg tablet hydrocodone 5 mg-acetaminophen 325 1 tab PO Q6H PRN pain #10 tabs 06/29/24 mg tablet Allergies Allergy/AdvReac Type Severity Reaction Status Date / Time No Known Drug Allergies Allergy Verified 05/18/24 09:33 Patient History Medical History (Updated 06/29/24 @ 22:43 by Ricki Burroughs MD) Pre-diabetes Asthma Eczema Sleep apnea Allergies (~1965) Scoliosis (~1979) Chicken pox (~1969) Hypertension Binge eating disorder Back pain PTSD (post-traumatic stress disorder) Major depressive disorder, recurrent episode with anxious distress Surgical History Anesthesia History of shoulder surgery (~09/2019) History of back surgery (~03/2019) Family History Father History of heart disease Hypertension Mother Atrial fibrillation Brother Hypertension Social History household members: spouse Smoking Status: Never smoker alcohol intake: current Smoking Status: Never smoker alcohol intake frequency: 3 or more drinks per day Exam Narrative Exam Narrative: GENERAL: Well-developed patient, in mild distress. HEAD: Atraumatic. Normocephalic. EYES: Pupils equal round and reactive. Extraocular motions intact. No scleral icterus. No injection or drainage. ENT: Nose without bleeding, purulent drainage. Throat without erythema, tonsillar hypertrophy or exudate. Airway patent. NECK: Trachea midline. Non tender CARDIOVASCULAR: Regular rate and rhythm without murmurs, gallops, or rubs. RESPIRATORY: Clear to auscultation. Breath sounds equal bilaterally. No wheezes, rales, or rhonchi. GASTROINTESTINAL: Abdomen soft, non-tender, nondistended. EXTREMITIES: No edema or joint tenderness. BACK: Nontender without deformity or crepitance. No flank tenderness. NEURO: AOx3. Motor functions grossly nonfocal. SKIN: No rash or erythema of visible areas Initial Vital Signs Initial Vital Signs: Vital Signs Temperature 98.5 F 06/29/24 17:17 Pulse Rate 84 02/20/25 17:17 Respiratory Rate 20 06/29/24 17:17 Blood Pressure 156/85 H 06/29/24 17:17 Pulse Oximetry 99 06/29/24 17:17 Oxygen Delivery Method Room Air 06/29/24 17:17 Course Orders Ordered: ED Orders 06/29/24 20:05 Urine Microscopic Stat 06/29/24 20:34 CT kidney ureter bladder (KUB) Stat Discontinued Medications Hydrocodone Bitart/Acetaminophen (Hydrocodone/Acet 5/325 Prepack) 1 bottle MISC DIRECTED ONE Stop: 06/29/24 22:44 Last Admin: 06/29/24 23:10 Dose: 1 bottle Documented By: GUNJAN Hydromorphone HCl (Hydromorphone 0.5 Mg Inj) 0.5 mg IV NOW ONE Stop: 06/29/24 21:28 Last Admin: 06/29/24 21:49 Dose: 0.5 mg Documented By: GUNJAN Ampicillin Sodium/Sulbactam (Sodium 3 gm/ Sodium Chloride) 100 mls @ 200 mls/hr IV NOW ONE Stop: 06/29/24 22:25 Last Infusion: 06/29/24 23:10 Dose: Infused Documented By: Admin: 06/29/24 22:33 Dose: 200 mls/hr Documented By: GUNJAN Ketorolac Tromethamine (Ketorolac 30 Mg/Ml Vial) 15 mg IV NOW ONE Stop: 06/29/24 21:28 Last Admin: 06/29/24 21:49 Dose: 15 mg Documented By: GUNJAN Ondansetron HCl (Ondansetron 4 Mg/2 Ml Inj) 4 mg IV NOW PRN PRN Reason: Nausea And Vomiting Ondansetron HCl (Ondansetron 4 Mg Odt) 4 mg PO NOW PRN PRN Reason: Nausea And Vomiting Ondansetron HCl (Ondansetron 4 Mg/2 Ml Inj) 4 mg IV NOW ONE Stop: 06/29/24 21:28 Last Admin: 06/29/24 23:16 Dose: Not Given Documented By: GUNJAN Vital Signs Vital signs: Vital Signs - 8 hr 06/29/24 19:47 06/29/24 19:47 06/29/24 20:04 Pulse Rate 88 Respiratory Rate Blood Pressure 138/67 153/79 H Pulse Oximetry 98 06/29/24 20:30 06/29/24 20:30 06/29/24 21:00 Pulse Rate 72 78 Respiratory Rate Blood Pressure 157/76 H Pulse Oximetry 98 98 06/29/24 21:00 06/29/24 21:30 06/29/24 21:54 Pulse Rate 75 75 Respiratory Rate Blood Pressure 138/77 Pulse Oximetry 98 99 06/29/24 21:54 06/29/24 22:00 06/29/24 22:00 Pulse Rate 78 Respiratory Rate Blood Pressure 138/83 140/77 Pulse Oximetry 96 06/29/24 22:30 06/29/24 22:30 06/29/24 23:00 Pulse Rate 71 78 Respiratory Rate 18 Blood Pressure 128/68 Pulse Oximetry 97 99 06/29/24 23:00 Pulse Rate Respiratory Rate Blood Pressure 130/72 Pulse Oximetry MDM - Abdominal Pain Lab Data Attestation: I reviewed the patient's lab results. Lab results narrative: White blood cell count 8000, hemoglobin 14.6, platelets adequate. Glucose 105. Electrolytes unremarkable. Normal renal function. Liver functions and lipase unremarkable. Urine negative. 06/29/24 17:32 06/29/24 17:32 Labs: Lab Results 06/29/24 06/29/24 Range/Units 17:32 20:05 WBC 8.0 (4.5-11.0) X10^3/uL RBC 4.76 (4.0-5.2) X10^6/uL Hgb 14.6 (12.0-16.0) g/dL Hct 41.6 (36-46) % MCV 87.3 (80-100) fL MCH 30.6 (26-34) PG MCHC 35.1 (30-36) % RDW 13.1 (11.6-14.8) % Plt Count 312 (150-400) X10^3/uL Neut % (Auto) 60.2 (50-75) % Lymph % (Auto) 27.6 (25-40) % [place] % (Auto) 7.6 (3-14) % Eos % (Auto) 3.7 (2-4) % Baso % (Auto) 0.9 (0-2) % Neut # (Auto) 4800 (1524-3584) /uL Lymph # (Auto) 2200 (6494-4953) /uL [place] # (Auto) 600 (0-900) /uL Eos # (Auto) 300 (0-450) /uL Baso # (Auto) 100 (0-100) /uL Sodium 138 (137-145) mmol/L Potassium 3.6 (3.4-5.1) mmol/L Chloride 101 (98-107) mmol/L Carbon Dioxide 28 (22-32) mmol/L BUN 12 (7-17) mg/dL Creatinine 0.77 (0.52-1.04) mg/dL Estimated GFR > 60 (>60) mL/min BUN/Creatinine Ratio 15.6 (6-22) Glucose 105 H (70-100) mg/dL Calcium 9.6 (8.4-10.2) mg/dL Total Bilirubin 0.6 (0.2-1.3) mg/dL AST 30 (14-36) IU/L ALT 49 H (<35) IU/L Alkaline Phosphatase 68 (38-126) U/L Total Protein 8.2 (6.3-8.2) g/dL Albumin 4.6 (3.5-5.0) g/dL Globulin 3.6 (1.7-4.1) g/dL Albumin/Globulin Ratio 1.3 (1.0-2.8) Lipase 59 (23-300) U/L Urine RBC 1-5/hpf (0-5/HPF) Urine WBC 1-5/hpf (0-5/HPF) Ur Squamous Epith Cells 0-1 /hpf (0-5/HPF) Urine Bacteria Occasional (0-1) (None) Ur Culture Indicated? Cult not indicated Vol Urine Centrifuged 10ml (spun) Point of care testing: Urine Dip Bedside Urine Glucose Negative Bedside Urine Bilirubin - Negative Bedside Urine Ketone - Negative Urine Specific [place] 1.030 Bedside Urine Occult Blood +++ Bedside Urine pH 6 Bedside Urine Protein - Negative Bedside Urine Urobilinogen - Negative Bedside Urine Nitrite - Negative Bedside Urine Leukocytes +/- [address] scan - abdomen/pelvis: Radiologist's Impression: [address] [address] [address] Scan Report Signed Patient: Marquita Parada MR#: [id number] : 1965 Acct:[id number] Age/Sex: 59 / F Date of Service: 06/29/24 Loc: ED Accession Number: [id number] Procedure: CT kidney ureter bladder (KUB) Ordering Provider: Ricki Burroughs MD PROCEDURE: CT KIDNEY URETER BLADDER (KUB) INDICATIONS: intermittent lower abdominal pain with blood in the urine TECHNIQUE: Axial sections were acquired from the lung bases to the pubic symphysis. Coronal and sagittal reformats were performed. For radiation dose reduction, the following was used: automated exposure control, adjustment of mA and/or kV according to patient size. COMPARISON: [facility], CT, CT KIDNEY URETER BLADDER (KUB), 08/26/2020, 11:34. FINDINGS: Image quality: Diagnostic. Peritoneum: No pneumoperitoneum or ascites. Bones: No acute osseous abnormality. Lower Chest: No acute abnormality. Liver: Normal in size and contour. Diffuse hypoattenuation. Gallbladder: Cholelithiasis versus cholestasis (2/57). Biliary tree: No intrahepatic or extrahepatic biliary ductal dilatation. Pancreas: Within normal limits. Spleen: Normal in size and contour. Kidneys: No hydronephrosis or obstructive urolithiasis. Adrenals: No adrenal nodularity. Bladder: Normal in size and wall thickness. : Anteverted uterus. Left adnexal 5.4 cm hypodense lesion (2/127). Stomach: Normal in size and contour. Bowel: Mild mural thickening of the proximal sigmoid colon in a background of colonic diverticulosis and mild fat stranding along the anti mesenteric border (2/113; 5/55). Otherwise, no bowel obstruction. Appendix within normal limits (2/104. Lymph Nodes: No retroperitoneal, mesenteric, or inguinal lymphadenopathy. Vascular: No abdominal aortic aneurysm. Soft Tissues: No acute abnormality. IMPRESSION: 1. Acute, uncomplicated sigmoid diverticulitis. 2. Cholelithiasis versus cholestasis. 3. Hepatic steatosis. 4. Left adnexal 5.4 cm hypodense lesion. The pelvic ultrasound from 11/04/2017 identified this finding as a simple cyst. Dictated by: Ortega Schmitt M.D. on 06/29/2024 at 21:48 Approved by: Ortega Schmitt M.D. on 06/29/2024 at 21:53 MDM Narrative Medical decision making narrative: 59-year-old female with suspected prior left kidney stones not confirmed by passage of any physical stone or by imaging study, also history of left-sided ovarian cyst, complains of nontraumatic left flank pain, afebrile, sirs screen negative, no CVA region tenderness. Some tenderness mid lower left abdomen. DDx consider left ureteral colic, UTI/pyelonephritis, colitis, diverticulitis, gynecology etiology, musculoskeletal, radiculopathy, other. She would like pain medication, IV Toradol, IV Dilaudid. Lab results: White blood cell count 8000, hemoglobin 14.6, platelets adequate. Glucose 105. Electrolytes unremarkable. Normal renal function. Liver functions and lipase unremarkable. Urine negative. CT abdomen and pelvis shows uncomplicated sigmoid diverticulitis. Also left ovarian cyst 5 cm diameter noted. See radiology report Offered pelvic ultrasound to further evaluate left ovarian cyst, known left ovarian cyst prior, she declines ultrasound evaluation for now. Trial of antibiotics and outpatient treatment, patient agrees. IV Unasyn. Prescription sent for 10 day course oral Augmentin antibiotic to her pharmacy. Advised recheck exam next couple of days with PCP. Return precautions discussed. Home pack hydrocodone/APAP, prescription sent to her pharmacy additional pain control supply. Discharge Plan Departure Patient Disposition: Home Clinical Impression: Acute diverticulitis Instructions: DI for Diverticulitis Activity Restrictions/Additional Instructions: Ms Parada, You had left sided abdominal pain with some tenderness on exam, history of suspected kidney stone in the past, history of left ovarian cyst in the past. Screening labs unremarkable. CT abdomen and pelvis showed inflammation diverticulitis changes of the sigmoid colon and left lower side, consistent with where you have your pain and tenderness. Currently it is uncomplicated, meaning there is no description so far of perforation or abscess or obstruction. You are not describing any GI bleeding symptoms. Trial of oral antibiotics. IV Unasyn given in the emergency department, prescription for oral antibiotic Augmentin for discharge. Take antibiotics for 10 day course as prescribed. Consider recheck of your examination and symptoms with your regular doctor on Wednesday. Return earlier to this/nearest emergency department for any change worsening symptoms or any concerns prior. Thank you for allowing our team to evaluate you had today. Prescriptions: New amoxicillin-pot clavulanate 875-125 mg tablet 1 tab PO BID Qty: 20 0RF hydrocodone-acetaminophen 5-325 mg tablet 1 tab PO Q6H PRN (Reason: pain) Qty: 10 0RF No Action estradiol 0.0375 mg/24 hr patch semiweekly 1 patch transdermal 2XW Rx Instructions: apply 1 patch for 3 days alternating with 1 patch for 4 days each week for 3 wks per 4-wk cycle progesterone micronized 100 mg capsule 100 mg PO QAM Rx Instructions: off 7 days; repeat cycle metformin 500 mg tablet 500 mg PO DAILY lisdexamfetamine 60 mg capsule 60 mg PO DAILY Qty: 30 0RF bupropion HCl 150 mg tablet extended release 24 hr 300 mg PO QAM Qty: 90 3RF fluvoxamine 100 mg tablet 100 mg PO DAILY Qty: 90 3RF zolpidem 5 mg tablet 5 mg PO BEDTIME Qty: 30 3RF albuterol sulfate [Proventil HFA] 90 mcg/actuation HFA aerosol inhaler 1 puff inhalation PRN Qty: 8.5 3RF losartan-hydrochlorothiazide 50-12.5 mg tablet 1 tab PO DAILY Qty: 90 1RF Pulmicort Flexhaler 90 mcg/actuation aerosol powdr breath activated inhalation Estring 2 mg (7.5 mcg /24 hour) ring vaginal (DME) FreeStyle Srikanth 2 Sensor Kit See Rx Instructions .ROUTE .MEDSUPPLY Qty: 1 Patient Comments: ONE APPLICATION EVERY 2 WEEKS DIRECTED Rx Instructions: As directed Referrals: Amari Johnson, [Primary Care Provider] - Stand Alone Forms: Patient Portal/API/Survey
[2024-06-29] MEDS: HYDROMORPHONE 0.5 MG INJ IV (21:49)
[2024-06-29] MEDS: KETOROLAC 30 MG/ML VIAL 15 MG IV (21:49)
[2024-06-29] MEDS: AMPICILLIN/SULBACTAM 3 GM 3 GM in SODIUM CHLORIDE 0.9% 100 ML IV (22:33)
[2024-06-29] MEDS: HYDROCODONE/ACET 5/325 PREPACK 1 BOTTLE MISC (23:10)
== END 2024-06-29 23:18 | disposition home or self-care (01) ==
PROVIDERS: Student in an Organized Health Care Education/Training Program; Emergency Provider Emergency Medicine; PCP Family Medicine
DX: K57.32 Diverticulitis of large intestine without perforation or abscess without bleeding (principal); R31.9 Hematuria, unspecified
CPT/HCPCS: 36415; 74176; 80053; 81003; 81015; 83690; 85025; 96365; 96375; 99284; J0295; J1171; J1885

== ENCOUNTER → 2024-07-12 10:54 | Outpatient (CLI) | payer BC, SELFPAY ==
--- NOTE | 2024-07-12 11:12 | DIAB.MNTFU ---
Follow-up Diabetes Medical Nutrition Therapy Assessment Name: Marquita Parada Date: 07/12/24 Time: 1110-12 Dx: Type II Diabetes Provider: Courtney Marquita presents for DM visit. New dx T2DM and endorses FH of Dm with father. Accessing [facility] per report without issue. Cut out ETOH recently and increased exercise. Getting some false lows with recent CGM sensor, checking with fingersticks. Started Tirzepatide via compound pharmacy per report. states it has not changed her hunger much but seems to help with BG and is focusing on smaller portions, States nothing sounds good which does allude to a potential impact to appetite with start of GLP1, though on a low dose. No SE reported. Normal BM. Did have recent dx of diverticulitis per report. has a list of foods she wants to review carb content. Wants macro rx. Noticing with more robust afternoon snack, she is not hungry enough to eat dinner with her . Due for labs and wants to schedule with PCP. Diet Recall: 830a: coffee with eggs and veggies 1130a-12p: nuts 3p: yogurt with farro, nuts, seeds, berries 5p: nothing or apple with nuts water coffee Anthropometrics: Ht: 67 Wt: 242# 09/2023 Physical Activity: Walking inconsistently. Doing a lot of yard work breaking a sweat. Wants to restart walking but feels her mood makes the motivation difficult. Self-Monitoring Blood Glucose: Wearing CGM FSL2. TIR very much in goal and improved from last visit. Some false lows. TIR: 0% high 99% in range 1% low avg 106mg/dl GMI: 5.8% variance: 17.3% Last TIR: 4% high 96% in range avg 131mg/dl Diabetes Medications: 500mg Metformin 2.5mg Tirzepatide Pertinent Labs: HgA1c: 5.7% 08/2023 6.3% 03/2024 Past Medical History: (Last Updated 09/14/23 @ 16:14 by Amari Johnson DO) Allergies (~1965) Asthma Back pain Binge eating disorder Chicken pox (~1969) Eczema Hypertension Major depressive disorder, recurrent episode with anxious distress Pre-diabetes PTSD (post-traumatic stress disorder) Scoliosis (~1979) Sleep apnea Nutrition Rx: Carbohydrates: 130-180g/day Meal:45g Snack:15-30g Protein: 80-100g/day Fiber 25-40g per day Fat: 50-60g per day Nutrition Diagnosis: - Nutrition and food related knowledge deficit r/t newly dx T2DM aeb referral and reported BG results of FG >126mg/dl- improved/in progress Intervention: This participant was very receptive. Provided appropriate educational handouts. Discussed the following topics: Physical activity BG goals Low BG and false lows Troubleshooting CGM and replacement Meal timing CHO content of foods and macro rx Created SMART goals for patient self-care and success. Goals: Message Dr. Hatfield about med access and potential alternatives- met Check with [facility] about med coverage/availability - met Swipe CGM 3x per day- d/c Eat q 3-4 hours - in progress Try switching 12p and 3p meals/snacks- new Call Srikanth for replacement- new Make PCP appt- new Follow-up: WOODY SHER follow-up in 4 weeks Stormy Ledezma RDN, NIKKY Certified Diabetes Care and Building Engineer P: [phone] Thank you for this referral
== END ==
PROVIDERS: PCP Family Medicine; Referring Provider Naturopath
DX: E11.9 Type 2 diabetes mellitus without complications (principal); Z71.3 Dietary counseling and surveillance; Z83.3 Family history of diabetes mellitus; Z79.84 Long term (current) use of oral hypoglycemic drugs; Z79.85 Long-term (current) use of injectable non-insulin antidiabetic drugs
CPT/HCPCS: 97803

== ENCOUNTER → 2024-08-23 10:53 | Outpatient (CLI) | payer BC, SELFPAY ==
--- NOTE | 2024-08-23 17:09 | DIAB.MNTFU ---
Follow-up Diabetes Medical Nutrition Therapy Assessment Name: Marquita Parada Date: 08/23/24 Time: Dx: Type II Diabetes Provider: Courtney Marquita presents for DM visit. New dx T2DM and endorses FH of Dm with father. No newlabs, due in September. Getting Tirzepatide from compound pharmacy, but plans to get from [employer] for [employer] pay. Reports appetite is so suppressed that she feels she has to force herself to eat at times. Eating TID. Nothing sounds good. Will be reducing from 8.5mg to 7.5mg with dosing available via [facility], however may benefit from reducing dose now given appetite. Reports some constipation Diet Recall: 830a: coffee with eggs and veggies/feta 12p: smoothie with veggies, fruit, seeds 32oz 5p: One taco OR nuts with date OR leftover smoothie OR half burger dylan with veggie water 32oz coffee Anthropometrics: Ht: 67 Wt: 216# reported 08/23/24 242# 09/2023 Physical Activity: Use to hike and go for walks. Finding motivation for this difficulty. 3-7 days per week gardens (mowing, weeding, planing) Self-Monitoring Blood Glucose: Wearing CGM FSL2. All stats in goal. TIR: 0% high 100% in range 0% low avg 1010mg/dl GMI: 5.9% variance: 13.4% Last TIR: 0% high 99% in range 1% low avg 106mg/dl GMI: 5.8% variance: 17.3% Diabetes Medications: 500mg Metformin 8.5mg Tirzepatide Pertinent Labs: HgA1c: 5.7% 08/2023 6.3% 03/2024 Past Medical History: (Last Updated 09/14/23 @ 16:14 by Amari Johnson DO) Allergies (~1965) Asthma Back pain Binge eating disorder Chicken pox (~1969) Eczema Hypertension Major depressive disorder, recurrent episode with anxious distress Pre-diabetes PTSD (post-traumatic stress disorder) Scoliosis (~1979) Sleep apnea Nutrition Rx: Carbohydrates: 130-180g/day Meal:45g Snack:15-30g Protein: 80-100g/day Fiber 25-40g per day Fat: 50-60g per day Nutrition Diagnosis: - Nutrition and food knowledge deficit r/t needing more information on constipation MNT aeb pt report- new Intervention: This participant was very receptive. Provided appropriate educational handouts. Discussed the following topics: Constipation MNT: Physical activity, fluids, and fiber BG trends Potential for reducing Tirzepatide if appetite is overly limited Created SMART goals for patient self-care and success. Goals: Try switching 12p and 3p meals/snacks- d/c Call Srikanth for replacement- met Make PCP appt- met Reduce to 7.5mg prn- new Aim for 48oz water- new Try to move every day (walks or yardwork)- new Follow-up: WOODY SHER follow-up in 2 months Stormy Ledezma RDN, NIKKY Certified Diabetes Care and Perinatal Tech P: [phone] Thank you for this referral
== END ==
PROVIDERS: PCP Naturopath; Referring Provider Naturopath
DX: E11.9 Type 2 diabetes mellitus without complications (principal); Z71.3 Dietary counseling and surveillance; Z83.3 Family history of diabetes mellitus; Z79.84 Long term (current) use of oral hypoglycemic drugs; Z79.85 Long-term (current) use of injectable non-insulin antidiabetic drugs
CPT/HCPCS: 97803

== ENCOUNTER → 2024-09-26 10:43 | Outpatient (CLI) | payer BC, SELFPAY ==
[2024-09-26 13:48] LABS: Cancer Antigen 125 < 5.5 U/mL (0-35)
== END ==
PROVIDERS: PCP Naturopath; Referring Provider Naturopath; Visit Provider Obstetrics & Gynecology
DX: N83.202 Unspecified ovarian cyst, left side (principal); Z78.0 Asymptomatic menopausal state
CPT/HCPCS: 36415; 86304

== ENCOUNTER → 2024-10-05 09:37 | Outpatient (CLI) | payer BC, SELFPAY ==
[2024-10-05 11:02] LABS: Add Manual Diff / Slide Review NO; Basophils Absolute Auto 0 /uL (0-100); Basophils Percent Auto 0.5 % (0-2); Eosinophils Absolute Auto 200 /uL (0-450); Eosinophils Percent Auto 3.8 % (2-4); Hematocrit 38.8 % (36-46); Hemoglobin 13.8 g/dL (12.0-16.0); Lymphocytes Absolute Auto 1700 /uL (1100-4500); Lymphocytes Percent Auto 26.7 % (25-40); Mean Corpuscular HGB Conc 35.7 % (30-36); Mean Corpuscular Hemoglobin 30.6 PG (26-34); Mean Corpuscular Volume 85.8 fL (80-100); Monocytes Absolute Auto 400 /uL (0-900); Monocytes Percent Auto 6.3 % (3-14); Neutrophils Absolute Auto 4000 /uL (1500-7000); Neutrophils Percent Auto 62.7 % (50-75); Platelet Count 277 X10^3/uL (150-400); Red Blood Cell Count 4.52 X10^6/uL (4.0-5.2); Red Cell Distribution Width 13.3 % (11.6-14.8); White Blood Cell Count 6.4 X10^3/uL (4.5-11.0)
[2024-10-05 11:26] LABS: Alanine Aminotransferase 25 IU/L (<35); Albumin 4.3 g/dL (3.5-5.0); Albumin Globulin Ratio 1.8 (1.0-2.8); Alkaline Phosphatase 54 U/L (38-126); Aspartate Aminotransferase 24 IU/L (14-36); Bilirubin Total 0.7 mg/dL (0.2-1.3); Blood Urea Nitrogen 12 mg/dL (7-17); Calcium 9.5 mg/dL (8.4-10.2); Carbon Dioxide 26 mmol/L (22-32); Chloride 103 mmol/L (98-107); Cholesterol 192 mg/dL (140-199); Estimated Glomerular Filt Rate > 60 mL/min (>60); Globulin 2.4 g/dL (1.7-4.1); Glucose 104 mg/dL (70-99); HDL Cholesterol 37 mg/dL (40-60); HEMOLYSIS < 15 (0-50); LDL Cholesterol Calculated 137 mg/dL (<100); Potassium 4.1 mmol/L (3.4-5.1); Sodium 139 mmol/L (137-145); Total Protein 6.7 g/dL (6.3-8.2); Triglycerides 90 mg/dL (35-150)
== END ==
PROVIDERS: PCP Naturopath; Referring Provider Naturopath; Visit Provider Naturopath
DX: Z00.00 Encounter for general adult medical examination without abnormal findings (principal); E11.9 Type 2 diabetes mellitus without complications
CPT/HCPCS: 36415; 80053; 80061; 83036; 85025

== ENCOUNTER → 2024-10-16 06:47 | Outpatient (CLI) | payer BC, SELFPAY ==
--- NOTE | 2024-10-16 06:48 | DI.US.S_ITS ---
PROCEDURE: US PELVIC COMPLETE INDICATIONS: lt ovarian cyst TECHNIQUE: Real-time scanning was performed of the pelvic organs, with image documentation. Additional endovaginal scanning was necessary due to incomplete visualization of the adnexal and endometrial structures by transabdominal scanning. COMPARISON: [facility], US, US PELVIC COMPLETE, 11/04/2017, 14:49. FINDINGS: Uterus: Uterus is anteverted and normal in size at 6.1 x 2.9 x 4.7 cm. The myometrium is homogeneous. The endometrium measures 4.8 mm combined thickness. Right anterior intramural fibroid 1.1 x 1.0 x 1.0 cm Ovaries: Right ovary not seen. Left ovary measures 6 6 x 1 x 4.3 x 4.9 cm, 66.8 cc. Simple left ovarian cyst measures 5.4 x 4.0 x 4.7 cm. Less than 12 follicles noted Other: No pathologic free abdominal or pelvic fluid. IMPRESSION: Large 5.4 cm left ovarian simple cyst Approved by: Art Gar M.D. on 10/16/2024 at 17:07
== END ==
PROVIDERS: PCP Naturopath; Referring Provider Obstetrics & Gynecology; Visit Provider Obstetrics & Gynecology
DX: N83.292 Other ovarian cyst, left side (principal); D25.1 Intramural leiomyoma of uterus; Z78.0 Asymptomatic menopausal state
CPT/HCPCS: 76830; 76856

== ENCOUNTER → 2024-10-24 10:46 | Outpatient (CLI) | payer BC, SELFPAY ==
--- NOTE | 2024-10-24 11:02 | DIAB.MNTFU ---
Follow-up Diabetes Medical Nutrition Therapy Assessment Name: Marquita Parada Date: 10/24/24 Time: a Dx: Type II Diabetes Provider: Courtney Juárez presents for DM visit. Completed labs in September. Reports reduced wt and BP and hgA1c. Endorses continued reduced appetite and portions. Reduced bread, rice, potatoes intake due to prioritizing protein and veggies When eating out, choosing kids or senior meals. Continues on reduced ETOH intake. Constipation improved with mirilax and magnesium. Has a BM most days or q other day. Increased Tirzepitide to 10mg with recs of pulmonary provider per report. Still craves sweets, but has been keeping most sweets out of the house. making some homemade ice cream lately. sf ice cream lately in moderation. Holding GLP1 due to surgery this week, has noticed some increased cravings with the GLP1 pause. Diet Recall: 830a: coffee with 1 alejandre, 1 egg, veggies and feta 12p: plain yogurt with nuts and berries and seeds, 1/2 banana 5p: corn, broccoli, steak OR mini nachos order sn: nuts, 1-2 dates, 1tsp dark chocolate chips water 32oz x 1-2 coffee Anthropometrics: Ht: 67 Wt: 199.8# reported 10/2024 216# reported 08/23/24 242# 09/2023 Physical Activity: Feeling more motivated lately for activity. Gardening (mowing, weeding, planing). Checked out some library books about resistance training and stretching. Self-Monitoring Blood Glucose: Not using CGM currently due to both improved hgA1c and the upgrade of FSL2 to FSL2+ and needing a new rx. States she feels ok without CGM at this time, which this RD agrees. Last TIR: 0% high 100% in range 0% low avg 1010mg/dl GMI: 5.9% variance: 13.4% Diabetes Medications: 500mg Metformin 10mg Tirzepatide Pertinent Labs: HgA1c: 5.7% 08/2023 6.3% 03/2024 5.0% reported 10/2024 Past Medical History: (Last Updated 09/14/23 @ 16:14 by Amari Johnson DO) Allergies (~1965) Asthma Back pain Binge eating disorder Chicken pox (~1969) Eczema Hypertension Major depressive disorder, recurrent episode with anxious distress Pre-diabetes PTSD (post-traumatic stress disorder) Scoliosis (~1979) Sleep apnea Nutrition Rx: Carbohydrates: 130-180g/day Meal:45gSnack:15-30g Protein: 80-100g/day Fiber 25-40g per day Fat: 50-60g per day Nutrition Diagnosis: - Nutrition and food knowledge deficit r/t needing more information on constipation MNT aeb pt report- improved - Physical inactivity r/t stage of change preparation aeb pt report - new Intervention: This participant was very receptive. Provided appropriate educational handouts. Discussed the following topics: Physical activity recs and goals hgA1c improvement and goals weight management goals and strategies Constipation MNT review in brief CGm use prn Created SMART goals for patient self-care and success. Goals: Reduce to 7.5mg prn- not met Aim for 48oz water- improved/in progress Try to move every day (walks or yardwork)- in progress Start resistance training and stretching regimen- new Follow-up: [facility] follow-up prn Stormy Ledezma RDN, NIKKY Certified Diabetes Care and Dispatcher [employer] P: [phone] Thank you for this referral
== END ==
LOC: DIET 10:47
PROVIDERS: PCP Naturopath; Referring Provider Naturopath
DX: E11.9 Type 2 diabetes mellitus without complications (principal); Z71.3 Dietary counseling and surveillance; Z79.84 Long term (current) use of oral hypoglycemic drugs
CPT/HCPCS: 97803

== ENCOUNTER 2024-10-26 08:51 | Day surgery (SDC) | payer BC, SELFPAY ==
[2024-10-18 12:26] VITALS: BMI 31.6
--- NOTE | 2024-10-26 | PATH_ITS ---
[facility] Accession Number: [id number] No. of containers..01 Tissue . 01 Material submitted: . ovary - BILATERAL FALLOPIAN TUBES AND BILATERAL OVARIES, LEFT OVARIAN CYST . 01 Diagnosis: BILATERAL FALLOPIAN TUBES AND BILATERAL OVARIES. LAPAROSCOPIC BILATERAL SALPINGO-OOPHORECTOMY: Serous cystadenoma. Complete cross-sections of fimbriated bilateral fallopian tubes with benign paratubal cysts and no other significant diagnostic alterations. MRV 11/02/2024 1330 Local . 01 Electronically signed: . Greta Cade MD, Pathologist NPI- [id number] . 01 Gross description: . The specimen is received in formalin with two patient identifiers and bilateral tubes, bilateral ovaries, left ovarian cyst, and consists of a 5.5 x 4.1 x 2.8 cm, 18 gram, enlarged cystic ovary with accompanying fimbriated fallopian tube. The external surface of the cystic ovary is smooth, white, glistening, intact, with slightly congested serosal vessels. The external surface of the ovary is inked and the cystic ovary is sectioned to show a unilocular, smooth inner lining cyst wall with cyst contents consisting of approximately 20 mL of clear serous fluid. No excrescences or areas of pedunculation are appreciated. The accompanying fimbriated fallopian tube measures 4.5 cm in length and averages 0.4 cm in diameter and is sectioned to show a 0.3 cm stellate lumen. Additionally received in the same container is a 3.5 x 1.5 x 1.1 cm, 5 gram ovary with an attached fimbriated fallopian tube. The serosal surface of the ovary is smooth white glistening and otherwise unremarkable. The ovary is sectioned to show a white homogeneous fibrotic cut surface. The accompanying fimbriated fallopian tube measures 4.8 cm in length by 0.4 cm in diameter, and is sectioned to show a 0.3 cm stellate lumen. Gravel Inspector sections are submitted as follows: . A1: Cystic ovary. A2: Accompanying fimbriated fallopian tube to include entire fimbriated end of the cystic ovary. A3: Opposing unremarkable ovary. A4: Fimbriated fallopian tube of opposing unremarkable ovary to include entire fimbriated end. ([id number]) /MRV 10/27/2024 [facility] Local . 01 Pathologist provided ICD-10: N83.202, D27.1 . 01 CPT . 165374 Specimen Comment: A courtesy copy of this report has been sent to [phone] Performed at: [address] [facility] [address], [place], [place] [id number] MD Edwar Guajardo MD Phone: [phone]
[2024-10-26] MEDS: LACTATED RINGERS 1,000 ML 42 ML IV (09:08)
[2024-10-26] MEDS: ACETAMINOPHEN 325 MG TABLET 975 MG PO (09:09)
[2024-10-26 09:25] VITALS: BP 119/69; PULSE 90; RESP 16; TEMP 36.3; O2SAT 95; BMI 31.1
--- NOTE | 2024-10-26 09:41 | PM.PREOP ---
Pre-operative Note COVID-19 COVID-19 status: Not tested Interval Note History & Physical reviewed/Exam performed by Physician: Yes Changes to H&P: No
--- NOTE | 2024-10-26 09:48 | SUR.OPER ---
Lithotomy on padded OR bed, head on pillow, arms secured on padded arm boards at <90 degrees abduction. Legs secured in padded yellow fins stirrups.
[2024-10-26] MEDS: BUPIVACAINE 0.5% W/ EPI (PF) 30 ML VIAL INJ (10:17)
[2024-10-26 11:15] VITALS: BP 135/69; PULSE 78; RESP 13; TEMP 36.6; O2SAT 97
--- NOTE | 2024-10-26 11:17 | P.OP_ITS ---
Operative Date/Time/Diagnoses Date of procedure: 10/26/24 Time of procedure: 10:15 Pre-op diagnosis: Left ovarian cyst Menopause Post-op diagnosis: same Procedure & Clinicians Procedure: Procedures Operation Date: 10/26/24 10:15 Actual Procedure Side Surgeon p Laparoscopic Salpingo-oophorectomy Bilateral Giovani Mondragon MD Indications: Marquita is a 59-year-old nulligravida who transition to end of menopause around age 50 who presents to discuss options for evaluation/treatment of a gradually enlarging left ovarian cyst 1st noted in 2017. A pelvic US in 10/2017 first demonstrated a simple cyst involves the left ovary measuring roughly 25 x 21 x [address] in August 2020 showed no free pelvic fluid, no inguinal hernias or adenopathy and a 3.8 centimeter left adnexal cyst. For most recent imaging, an abdominal pelvic CT in June 2024, shows an anteverted uterus w/ left adnexal 5.4 cm hypodense lesion. The patient does have some left lower quadrant discomfort intermittently but no consistent pain syndrome. She has not experienced any postmenopausal bleeding. She presents today to discuss options for further evaluation/treatment. We had an extended discussion about the slowly enlarging left ovarian cyst. Imaging has shown this to be a unilocular simple cyst with smooth moreno and no evidence of wall nodularity. Patient has never had a CA 125 performed and despite the fact that she has not had any postmenopausal bleeding she will need better definition of the endometrial stripe prior to any surgery to be certain assessment of the endometrial stripe isn't necessary at the time of surgery. CA 125 ordered (<5.5) and pelvic ultrasound on 10/16/2024 shows: FINDINGS: Uterus: Uterus is anteverted and normal in size at 6.1 x 2.9 x 4.7 cm. The myometrium is homogeneous. The endometrium measures 4.8 mm combined thickness. Right anteri or intramural fibroid 1.1 x 1.0 x 1.0 cm Ovaries: Right ovary not seen. Left ovary measures 6 6 x 1 x 4.3 x 4.9 cm, 66.8 cc. Simple left ovarian cyst measures 5.4 x 4.0 x 4.7 cm. Less than 12 follicles noted Other: No pathologic free abdominal or pelvic fluid. IMPRESSION: Large 5.4 cm left ovarian simple cystalso ordered but result is pending at this time. Following our discussions, the patient expresses a desire to proceed with laparoscopic bilateral salpingo oophorectomy with the possibility for hysteroscopy/D&C if the endometrial stripe shows any abnormality on pelvic ultrasound (negative, EM stripe = 4.8 mm. She presents today for her scheduled surgery. Operative Notes Findings: The uterus as well as the anterior and posterior cul-de-sacs are unremarkable. The right tube and ovary appear completely normal. The left tube is also normal. The left ovary however is enlarged consistent with prior ultrasound evaluation and contains a unilocular smooth walled cyst with clear fluid removed intact without spillage. The remainder of the abdomen and pelvis are normal to laparoscopic inspection. Closure Type: primary Specimen(s): left tube & ovary and right tube & ovary Applied: none Estimated blood loss (mL): 5 Blood products transfused: none Procedure in detail: With the patient under satisfactory general anesthesia in the modified dorsal lithotomy position, the perineum, vagina, and abdomen were prepped and draped in the usual manner for laparoscopy. A pre-surgical safety time-out was then taken in accordance with [facility] Main OR protocols. The umbilicus was infiltrated with 0.5% Marcaine with epinephrine and a 2 cm vertical incision was made. The dissection was carried down to the fascia which was incised transversely. Stay sutures were placed at each angle with 0 Vicryl interrupted and a Soni 12 mm trocar and sleeve were inserted through the incision. The Soni was then secured in place with the 2 sutures at either end of the fascial incision. The abdomen was inflated with carbon dioxide and a 2nd and 3rd 5 mm port were then placed in the left and right mid quadrants after infiltration of the skin with 0.5% Marcaine with epinephrine. The patient was then placed in steep Trendelenburg and laparoscopic inspection of the pelvis and abdomen was performed with the findings as noted above. The distal left tube was then grasped with a grasping forceps and the ovary elevated up out of the posterior cul-de-sac. A power Seal device was then used to coagulate and divide the infundibulopelvic ligament on the left and the dissection was carried across the mesosalpinx with the power Seal device so as to secure the mesosalpinx as well as the utero-ovarian ligament on the left. Once the tube and ovary were secured on the left, attention was directed at the right adnexa. Distal tube was grasped with a grasping forceps and the variceal device was then used to coagul ate and divide 1st the infundibulopelvic ligament with the dissection carried across the mesosalpinx and ending at the fallopian tube with division of the proximal most fallopian tube and utero-ovarian ligament on the right side. Complete hemostasis in the pelvis was noted and attention was turned to removal of the specimens from the abdominal cavity. A 12 mm Endo-Catch bag was introduced through the umbilical incision and the specimens were removed through the umbilical incision without any form of spillage. Tubes and ovaries from both sides were submitted as a single pathologic specimen. The pelvis was then reinspected and no other abnormalities her any evidence of bleeding was noted. The pneumoperitoneum was then vented and be laparoscopy port incisions were closed with 2-0 interrupted stitches on the fascia of the umbilical port and 4-0 Monocryl using inverted interrupted stitches were used to close the skin of the laparoscopy port incisions. Skin glue was applied followed by applications of appropriate dressings. Patient was then awakened from anesthesia and transferred to the PACU for a period of observation and recovery after having tolerated the procedure well. Complications: none Post-operative Condition: stable Disposition: PACU Plan for aftercare: Routine postoperative care with follow-up planned for 2 weeks after surgery or as needed
[2024-10-26 11:20] VITALS: BP 144/76; PULSE 76; RESP 16; O2SAT 98
[2024-10-26 11:25] VITALS: BP 119/58; PULSE 80; RESP 13; O2SAT 99
[2024-10-26 11:32] VITALS: BP 124/66; PULSE 77; RESP 18; O2SAT 98
[2024-10-26 11:34] VITALS: BP 120/64; PULSE 74; RESP 11; O2SAT 99
== END 2024-10-26 12:20 | disposition home or self-care (01) ==
PROVIDERS: PCP Naturopath; Referring Provider Obstetrics & Gynecology; Visit Provider Obstetrics & Gynecology
PROC: 0UT24ZZ Resection of Bilateral Ovaries, Percutaneous Endoscopic Approach (ICD-10-PCS; CPT 58661; principal; 2024-10-26 10:15)
DX: D27.9 Benign neoplasm of unspecified ovary (principal); N83.8 Other noninflammatory disorders of ovary, fallopian tube and broad ligament
CPT/HCPCS: 58661; J0330; J1100; J1885; J2250; J2405; J2704; J3010

== ENCOUNTER → 2025-01-12 09:33 | Outpatient (CLI) | payer BC, SELFPAY | PROVIDERS: PCP Naturopath; Visit Provider Nurse Practitioner Family | DX: R30.0 Dysuria (principal) | CPT/HCPCS: 87086 ==

== ENCOUNTER → 2025-01-29 11:36 | Outpatient (CLI) | payer BC, SELFPAY ==
[2025-01-29 12:33] LABS: Hemoglobin A1C% w Est Avg Glu 4.9 % (4.0-6.0)
[2025-01-29 13:00] LABS: Cholesterol 205 mg/dL (140-199); Glucose 93 mg/dL (70-99); HDL Cholesterol 56 mg/dL (40-60); Triglycerides 84 mg/dL (35-150)
== END ==
PROVIDERS: PCP Naturopath; Referring Provider Naturopath; Visit Provider Naturopath
DX: E11.9 Type 2 diabetes mellitus without complications (principal); E78.00 Pure hypercholesterolemia, unspecified
CPT/HCPCS: 36415; 80061; 82947; 83036